=== PATIENT | female | born 2000 | race American Indian/Alaskan Native ===

== ENCOUNTER 2019-05-21 17:42 | Inpatient (IN) | payer MEDICAID ==
[2019-05-21] MEDS ORDERED: hydrOXYzine HCl 25 MG Tab PO ONE (20:33)
[2019-05-21] MEDS ORDERED: fentaNYL 100 MCG/2 ML SDV IVPUSH ONE (22:28)
[2019-05-21] MEDS: Lactated Ringers 1,000 ML IV SCH ×2 (22:31→23:58)
[2019-05-21] MEDS ORDERED: fentaNYL 100 MCG/2 ML SDV IVPUSH PRN (22:47)
[2019-05-21] MEDS ORDERED: Lactated Ringers 1,000 ML IV ONE (22:47)
[2019-05-21] MEDS ORDERED: Sodium Chloride 0.9% 10 ML Syringe FLUSH PRN (22:47)
[2019-05-21] MEDS ORDERED: Lidocaine 1% 30 ML SDV INJECT PRN (22:47)
[2019-05-21] MEDS ORDERED: Butorphanol 2 MG/ML SDV IVPUSH PRN ×2 (22:47)
[2019-05-21] MEDS ORDERED: Methylergonovine 0.2 MG/1 ML Amp IM PRN (22:47)
[2019-05-21] MEDS ORDERED: Ondansetron 4 MG/2 ML SDV IVPUSH PRN (22:47)
[2019-05-21] MEDS ORDERED: Tranexamic Acid 1,000 MG in Sodium Chloride 0.9% 100 ML IV PRN (22:47)
[2019-05-21] MEDS ORDERED: Carboprost Tromethamine 250 MCG/1 ML Amp IM PRN (22:47)
[2019-05-21] MEDS ORDERED: Misoprostol 400 MCG (4 X 100 MCG TAB) RECTAL PRN (22:47)
--- NOTE | 2019-05-21 22:47 | PCM.LDHP ---
L&D History of Present Illness - General Date of Service: 05/21/19 Admit Problem/Dx: Admission Diagnosis/Problem Admission Diagnosis/Problem Source of Information: Patient History Limitations: Reports: No Limitations - History of Present Illness Introduction:: 18-year-old at 40w0d presents to L&D with increased contractions. Patient has been vahid since this morning. She was seen in the clinic and was 1 cm dilated with a very posterior cervix this morning. Contractions increased so she presented to L&D around 1730. Cervix was again noted to be 1cm and posterior. Contractions were 2-3 minutes apart and painful. Patient was monitored for 2 hours. Cervix was noted to be 1 cm but moved anterior and was 90% effaced. Baby has been active. No vaginal bleeding or leaking of fluid. has been complicated by THC use and constipation. 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: Reports: , Spontaneous Social & Family History - Family History Family Medical History: Noncontributory - Tobacco Use Smoking Status *Q: Never Smoker Second Hand Smoke Exposure: No - Caffeine Use Caffeine Use: Reports: Soda - Recreational Drug Use Recreational Drug Use: No H&P Review of Systems - Review of Systems: Review Of Systems: See Below General: Reports: No Symptoms HEENT: Reports: No Symptoms Pulmonary: Reports: No Symptoms Cardiovascular: Reports: No Symptoms Genitourinary: Reports: No Symptoms Musculoskeletal: Reports: Back Pain Skin: Reports: No Symptoms L&D Exam - Exam Exam: See Below - Vital Signs Vital Signs: Last Vital Signs Temp 36.5 C 05/21/19 20:00 Pulse 72 05/21/19 20:00 Resp 16 05/21/19 20:00 BP 123/74 05/21/19 20:00 Pulse Ox Weight: 75.296 kg - OB Specific Contraction Duration (sec): 90 Contraction Frequency (min): 2.5 Contraction Intensity: Mild to Moderate Movement: Active Heart Tones: Present Heart Tones per Min: 140 Heart Rate (FHR) Variability: Marked (>25 bpm) Presentation: Vertex - Calhoun Score Calhoun Score Cervix Position: Anterior Calhoun Score Consistency: Soft Calhoun Score Effacement: >80% Calhoun Score Dilation: 1-2 cm Calhoun Score 's Station: -2 Calhoun Score Total: 9 - Exam General: Alert, Oriented HEENT: Mucosa Moist & [place], Posterior Pharynx Clear Lungs: Clear to Auscultation, Normal Respiratory Effort Cardiovascular: Regular Rate, Regular Rhythm. No: Systolic Murmur, Diastolic Murmur Genitourinary: Normal external exam Back Exam: Normal Inspection Skin: Warm, Dry, Intact - Patient Data Lab Results Last 24 hrs: Laboratory Results - last 24 hr 05/21/19 05/21/19 Range/Units 20:48 21:24 WBC 8.6 (5.0-10.0) 10^3/uL RBC 4.21 (4.2-5.4) 10^6/uL Hgb 11.4 L (12.0-16.0) g/dL Hct 33.8 L (37.0-47.0) % MCV 80.3 (80-100) fL MCH 27.1 (27.0-34.0) pg MCHC 33.7 (33.0-35.0) g/dL Plt Count 210 (150-450) 10^3/uL Urine Opiates Screen Negative (NEGATIVE) Ur Oxycodone Screen Negative (NEGATIVE) Urine Methadone Screen Negative (NEGATIVE) Ur Barbiturates Screen Negative (NEGATIVE) U Tricyclic Antidepress Negative (NEGATIVE) Ur Phencyclidine Scrn Negative (NEGATIVE) Ur Amphetamine Screen Negative (NEGATIVE) U Methamphetamines Scrn Negative (NEGATIVE) Urine MDMA Screen Negative (NEGATIVE) U Benzodiazepines Scrn Negative (NEGATIVE) Urine Cocaine Screen Negative (NEGATIVE) U Marijuana (THC) Screen Negative (NEGATIVE) Result Diagrams: 05/21/19 20:48 - Problem List (1) care SNOMED Code(s): 803426830, 59198467, 407171497, 231772437 ICD Code: Z34.90 - ENCNTR FOR SUPRVSN OF NORMAL , UNSP, UNSP TRIMESTER Status: Acute (2) Active labor at term SNOMED Code(s): 86519788 ICD Code: ZRY7262 - Status: Acute (3) Drug use affecting SNOMED Code(s): 75366203, 077362588 ICD Code: O99.320 - DRUG USE COMPLICATING , UNSPECIFIED TRIMESTER Status: Acute Problem List Initiated/Reviewed/Updated: Yes Orders Last 24hrs: Active Orders 24 hr Category Date Time Status OB Check [OM.PC] Click To Edit Care 05/21/19 18:02 Ordered Lactated Ringers [Ringers, Lactated] 1,000 ml Med 05/21/19 20:45 Active IV ASDIRECTED EFM External [ Heart Monitor External] [WOMSER] Oth 05/21/19 20:34 Ordered Routine Medication Orders Lactated Ringer's (Ringers, Lactated) 1,000 mls @ 125 mls/hr IV ASDIRECTED SHERMAN Last Admin: 05/21/19 22:31 Dose: 125 mls/hr Assessment/Plan Comment:: 18-year-old at 40w0d in active labor 1. Admit to L&D and initiate routine intrapartum orders 2. AROM when able 3. Patient desires intrathecal when appropriate 4. Expectant management. Anticipate Sherry Villegas MD
[2019-05-21] MEDS ORDERED: Oxytocin/Normal Saline 30 UNIT/500 ML BAG IV SCH (23:00)
[2019-05-22] MEDS ORDERED: fentaNYL 100 MCG/2 ML SDV ONE (00:02)
[2019-05-22] MEDS ORDERED: EPINEPHrine 1 MG/1 ML Amp ONE ×2 (00:02→11:24)
[2019-05-22] MEDS: Lactated Ringers 1,000 ML IV SCH (00:19)
--- NOTE | 2019-05-22 00:36 | PCM.PRNOTE ---
- Free Text/Narrative Note: Requested to provide analgesia to full term patient in severe pain. Upon entering the room, patient is sitting on edge of bed complaining of severe abdominal/pelvic pain and discomfort. Procedure was discussed with patient including adverse outcomes and expectations. Pt consented to analgesia, SAB/ IT. Pt placed into a proper sitting position. Landmarks for SAB/IT were identified and marked. Hands were washed and appropriate PPE was applied. Back was prepped with betadine x3. A sterile, transparent, fenestrated drape was applied. Excess betadine was removed. Using 3 mL of a 1% lidocaine solution , a skin wheel was placed at the L2/L3 interspace. A 24 ga (4 inch) Pencan spinal needle was inserted until positive for CSF. Negative for heme or paresthesias. Injected fentanyl 30 mcg, sufentanil 25 mcg, and 7.5 mg of a 0.75 % bupivacaine solution with an epi wash. Pt was placed left lateral position for approximately 20 minutes. There were zero complications or adverse outcomes. Will continue to monitor. Procedure Date & Time: 05/22/19 [id number]
--- NOTE | 2019-05-22 03:21 | PCM.DEL ---
L & D Note - General Info Date of Service: 05/22/19 Mother's Due Date: 05/21/19 - Delivery Note Labor: Spontaneous, Augmented by ARM Delivery Outcome: Livebirth Delivery Method: Spontaneous Vaginal Delivery-Single Infant Delivery Mode: Spontaneous Presentation: Vertex Nuchal Cord: None Anesthesia Type: Intrathecal Amniotic Fluid Description: Clear Episiotomy Type: None Laceration: 1st Degree, Perineal Suture type: Vicryl Suture size: 3-0 Placenta: Intact, Spontaneous Cord: 3 Vessels Estimated Blood Loss: 225 Resuscitation Needed: No : Bulb Syringe, Stimulated, Warmed Provider: Sherry Villegas Score 1 min: 8 Score 5 min: 9 Delivery Comments (Free Text/Narrative):: 18-year-old presented to L&D around 1730 for increased contractions. After 2 hours of observation, she was noted to be in active labor. Patient progressed through labor. She received an intrathecal around 0015. AROM was performed around 0030 for moderate clear fluid. Patient was noted to be completely dilated around 0245. She pushed for approximately 20 minutes then delivered a viable male with Apgars of 8 and 9 at 1 and 5 minutes respectively. was placed on the patient's abdomen. Cord was clamped x 2 then cut by patient's significant other. Cord blood was collected. Placenta delivered spontaneously 3 minutes later and was noted to be intact. Uterine tone and bleeding were noted to be appropriate. A 1st degree perineal laceration was noted and was bleeding so was repaired with a single figure-of-8 suture. Bleeding was again noted to be appropriate. Patient tolerated the procedure well, and there were no immediate complications. - General Info Date of Service: 05/22/19 - Patient Data Vitals - Most Recent: Last Vital Signs Temp 36.5 C 05/21/19 23:30 Pulse 96 05/22/19 00:00 Resp 16 05/22/19 00:00 BP 114/65 05/22/19 00:00 Pulse Ox Weight - Most Recent: 75.296 kg Lab Results Last 24 Hours: Laboratory Results - last 24 hr 05/21/19 05/21/19 Range/Units 20:48 21:24 WBC 8.6 (5.0-10.0) 10^3/uL RBC 4.21 (4.2-5.4) 10^6/uL Hgb 11.4 L (12.0-16.0) g/dL Hct 33.8 L (37.0-47.0) % MCV 80.3 (80-100) fL MCH 27.1 (27.0-34.0) pg MCHC 33.7 (33.0-35.0) g/dL Plt Count 210 (150-450) 10^3/uL Urine Opiates Screen Negative (NEGATIVE) Ur Oxycodone Screen Negative (NEGATIVE) Urine Methadone Screen Negative (NEGATIVE) Ur Barbiturates Screen Negative (NEGATIVE) U Tricyclic Antidepress Negative (NEGATIVE) Ur Phencyclidine Scrn Negative (NEGATIVE) Ur Amphetamine Screen Negative (NEGATIVE) U Methamphetamines Scrn Negative (NEGATIVE) Urine MDMA Screen Negative (NEGATIVE) U Benzodiazepines Scrn Negative (NEGATIVE) Urine Cocaine Screen Negative (NEGATIVE) U Marijuana (THC) Screen Negative (NEGATIVE) Med Orders - Current: Current Medications Acetaminophen (Tylenol) 650 mg PO Q4H PRN PRN Reason: Pain (Mild 1-3) and fever Butorphanol Tartrate (Stadol) 0.5 mg IVPUSH Q3H PRN PRN Reason: Pain Butorphanol Tartrate (Stadol) 1 mg IVPUSH Q3H PRN PRN Reason: Pain Carboprost Tromethamine (Hemabate Ds) 250 mcg IM ASDIRECTED PRN PRN Reason: HEMORRHAGE Fentanyl (Sublimaze) 100 mcg IVPUSH Q1H PRN PRN Reason: Pain (moderate 4-6) Lactated Ringer's (Ringers, Lactated) 1,000 mls @ 125 mls/hr IV ASDIRECTED [facility] Last Admin: 05/22/19 00:19 Dose: 125 mls/hr Oxytocin/Sodium Chloride (Pitocin In Ns 30 Unit/500 Ml) 30 unit in 500 mls @ 2 mls/hr IV TITRATE SHERMAN; Protocol Tranexamic Acid 1,000 mg/ (Sodium Chloride) 110 mls @ 660 mls/hr IV ONETIME PRN PRN Reason: Bleeding Lidocaine HCl (Xylocaine-Mpf 1%) 30 ml INJECT ASDIRECTED PRN PRN Reason: Perineal Repair Methylergonovine Maleate (Methergine) 0.2 mg IM ASDIRECTED PRN PRN Reason: Hemorrhage Misoprostol (Cytotec) 800 mcg RECTAL ASDIRECTED PRN PRN Reason: Hemorrhage Ondansetron HCl (Zofran) 4 mg IVPUSH Q4H PRN PRN Reason: Nausea/Vomiting Last Admin: 05/21/19 23:49 Dose: 4 mg Sodium Chloride (Saline Flush) 10 ml FLUSH ASDIRECTED PRN PRN Reason: Keep Vein Open Discontinued Medications Epinephrine HCl (Adrenalin) Confirm Administered Dose 1 mg .ROUTE .STK-MED ONE Stop: 05/22/19 00:03 Last Admin: 05/22/19 01:40 Dose: Not Given Fentanyl (Sublimaze) 100 mcg IVPUSH ONETIME ONE Stop: 05/21/19 22:29 Last Admin: 05/21/19 22:52 Dose: 100 mcg Fentanyl (Sublimaze) Confirm Administered Dose 100 mcg .ROUTE .STK-MED ONE Stop: 05/22/19 00:03 Last Admin: 05/22/19 01:40 Dose: Not Given Hydroxyzine HCl (Atarax) 50 mg PO ONETIME ONE Stop: 05/21/19 20:34 Last Admin: 05/21/19 21:08 Dose: 50 mg Lactated Ringer's (Ringers, Lactated) 1,000 mls @ 999 mls/hr IV BOLUS ONE Stop: 05/21/19 23:47 Sufentanil Citrate (Sufenta) Confirm Administered Dose 50 mcg .ROUTE .STK-MED ONE Stop: 05/22/19 00:03 Last Admin: 05/22/19 01:41 Dose: Not Given - Problem List & Annotations (1) (normal spontaneous vaginal delivery) SNOMED Code(s): 49831939, 159243736 Code(s): O80 - ENCOUNTER FOR FULL-TERM UNCOMPLICATED DELIVERY Status: Acute (2) Perineal laceration SNOMED Code(s): 872178133 Code(s): DWS9307 - Status: Acute - Problem List Review Problem List Initiated/Reviewed/Updated: Yes - My Orders Last 24 Hours: My Active Orders 05/21/19 18:02 OB Check [OM.PC] Click To Edit 05/21/19 20:34 EFM External [ Heart Monitor External] [WOMSER] Routine 05/21/19 20:45 Lactated Ringers [Ringers, Lactated] 1,000 ml IV ASDIRECTED 05/21/19 22:47 Patient Status [ADT] Routine Communication Order [RC] ASDIRECTED Heart Tones [RC] PER UNIT ROUTINE Notify Provider Vital Signs OB [RC] ASDIRECTED Notify Provider [RC] PRN Pump Management, Intrathecal [RC] ASDIRECTED Up ad Rylee [RC] ASDIRECTED Vital Signs [RC] PER UNIT ROUTINE Acetaminophen [Tylenol] 650 mg PO Q4H PRN Butorphanol [Stadol] 0.5 mg IVPUSH Q3H PRN Butorphanol [Stadol] 1 mg IVPUSH Q3H PRN Carboprost Tromethamine [Hemabate DS] 250 mcg IM ASDIRECTED PRN Lidocaine 1% [Xylocaine-MPF 1%] 30 ml INJECT ASDIRECTED PRN Methylergonovine [Methergine] 0.2 mg IM ASDIRECTED PRN Ondansetron [Zofran] 4 mg IVPUSH Q4H PRN Sodium Chloride 0.9% [Saline Flush] 10 ml FLUSH ASDIRECTED PRN Tranexamic Acid [Cyklokapron] 1,000 mg Sodium Chloride 0.9% [Normal Saline] 100 ml IV ONETIME fentaNYL [Sublimaze] 100 mcg IVPUSH Q1H PRN miSOPROStoL [Cytotec] 800 mcg RECTAL ASDIRECTED PRN Saline Lock Insert [OM.PC] Routine Resuscitation Status Routine 05/21/19 23:00 Oxytocin/Normal Saline [Pitocin in NS 30 UNIT/500 ML] 30 unit in 500 ml IV TITRATE 05/22/19 Breakfast Clear Liquid Diet [DIET] - Assessment Assessment:: 18-year-old, now , s/p at 40w1d - Plan Plan:: 1. Initiate routine cares 2. Plans to breastfeed 3. Anticipate discharge 05/24/2019 Sherry Villegas MD
[2019-05-22] MEDS ORDERED: Oxytocin 10 Units/1 ML SDV IM PRN (03:22)
[2019-05-22] MEDS ORDERED: Benzocaine/Menthol 20%-0.5% Spray 56 GM Canister TOP PRN (03:22)
[2019-05-22] MEDS ORDERED: Simethicone 80 MG Tab.Chew PO PRN (03:22)
[2019-05-22] MEDS: Ibuprofen 800 MG Tab PO PRN ×3 (04:58→22:04)
[2019-05-22] MEDS: Prenatal Multivitamin with Calcium/Folic Acid/Iron Tab PO SCH (09:22)
[2019-05-22] MEDS: Docusate Sodium 100 MG Cap PO PRN ×2 (09:26→21:06)
[2019-05-22] MEDS ORDERED: Bupivacaine 0.75%/D5W 2 ML Amp ISPINAL ONE (11:24)
[2019-05-22] MEDS ORDERED: fentaNYL 100 MCG/2 ML SDV ITHECAL ONE (11:24)
[2019-05-22] MEDS ORDERED: Lidocaine 1% 30 ML SDV ONE (11:24)
[2019-05-22] MEDS: Acetaminophen 325 MG Tab PO PRN ×2 (14:45→21:06)
[2019-05-23] MEDS: Acetaminophen 325 MG Tab PO PRN (02:06)
[2019-05-23] MEDS: Ibuprofen 800 MG Tab PO PRN ×2 (09:22→19:06)
[2019-05-23] MEDS: Prenatal Multivitamin with Calcium/Folic Acid/Iron Tab PO SCH (09:22)
[2019-05-23] MEDS: Docusate Sodium 100 MG Cap PO PRN ×2 (09:25→19:06)
[2019-05-24] MEDS: Ibuprofen 800 MG Tab PO PRN (05:56)
[2019-05-24] MEDS: Docusate Sodium 100 MG Cap PO PRN (08:51)
[2019-05-24] MEDS: Prenatal Multivitamin with Calcium/Folic Acid/Iron Tab PO SCH (08:51)
[2019-05-24] MEDS: Acetaminophen 325 MG Tab PO PRN (08:51)
--- NOTE | 2019-05-24 09:50 | PCM.DCSUM1 ---
Discharge Summary - Hospital Course Free Text/Narrative:: 18-year-old PPD#2 status post at 40w1d Diagnosis: Stroke: No - Discharge Data Discharge Date: 05/24/19 Discharge Disposition: Home, Self-Care 01 Condition: Good - Referral to Home Health Primary Care Physician: Reggie Villegas MD - Patient Summary/Data Operative Procedure(s) Performed: None Complications: None Consults: Consultations 05/22/19 03:22 Consult to Director Of Learning [CONS] Routine Labs Pending at D/C: None Recommended Follow-up Testing/Procedures: None Planned Operative Procedure(s) after DC: None Hospital Course: Please see subjective section - Patient Instructions Diet: Usual Diet as Tolerated Activity: As Tolerated, No Lifting Over 20 Pounds Driving: May Drive Today Showering/Bathing: May Shower Notify Provider of: Fever, Increased Pain, Nausea and/or Vomiting - Discharge Plan *PRESCRIPTION DRUG MONITORING PROGRAM REVIEWED*: Not Applicable *COPY OF PRESCRIPTION DRUG MONITORING REPORT IN PATIENT LAURA: Not Applicable Home Medications: Home Meds Vits #93/Iron Fum/FA [ Formula Tablet] 1 tab PO DAILY 05/21/19 [History] Acetaminophen [Tylenol] 650 mg PO Q4H PRN tablet 05/24/19 [Rx] Docusate Sodium [Colace] 100 mg PO BID PRN cap 05/24/19 [Rx] Ibuprofen [Motrin] 800 mg PO Q8H PRN tablet 05/24/19 [Rx] witch Liane [Medi-Pads] 1 each TOP Q4HR PRN pad 05/24/19 [Rx] Patient Handouts: Care of a Perineal Tear, Care After Vaginal Delivery Referrals: Sherry Villegas MD [Primary Care Provider] - - Discharge Summary/Plan Comment DC Time >30 min.: No Discharge Summary/Plan Comment: Discharge home today. Follow-up in 6-8 weeks for routine visit. Reasons to return for evaluation prior to routine appointment were reviewed, and all questions were answered. - General Info Date of Service: 05/24/19 Subjective Update: PPD#2. Patient is doing well. Complains of back pain that improves with Tylenol and ibuprofen. Abdominal cramping has improved. No fever, chills, dizziness or lightheadedness. Tolerating a general diet. Urinating and passing gas. Ambulating without difficulty. is going well--baby did receive a bottle overnight. No concerns per nursing staff. Functional Status: Reports: Pain Controlled, Tolerating Diet, Ambulating, Urinating - Review of Systems General: Reports: No Symptoms HEENT: Reports: No Symptoms Pulmonary: Reports: No Symptoms Cardiovascular: Reports: No Symptoms Gastrointestinal: Reports: No Symptoms Genitourinary: Reports: No Symptoms Musculoskeletal: Reports: Back Pain Skin: Reports: No Symptoms Neurological: Reports: No Symptoms - Patient Data Vitals - Most Recent: Last Vital Signs Temp 36.7 C 05/24/19 08:00 Pulse 101 H 05/24/19 08:00 Resp 16 05/24/19 08:00 BP 98/55 L 05/24/19 08:00 Pulse Ox 98 05/24/19 08:00 Weight - Most Recent: 75.296 kg Med Orders - Current: Current Medications Acetaminophen (Tylenol) 650 mg PO Q4H PRN PRN Reason: Pain (Mild 1-3) and fever Last Admin: 05/24/19 08:51 Dose: 650 mg Benzocaine/Menthol (Dermoplast Pain Relief [place]) 0 gm TOP Q4H PRN PRN Reason: Perineal comfort measures Last Admin: 05/22/19 04:58 Dose: 1 spray Carboprost Tromethamine (Hemabate Ds) 250 mcg IM ASDIRECTED PRN PRN Reason: HEMORRHAGE Docusate Sodium (Colace) 100 mg PO BID PRN PRN Reason: Constipation Last Admin: 05/24/19 08:51 Dose: 100 mg Lactated Ringer's (Ringers, Lactated) 1,000 mls @ 125 mls/hr IV ASDIRECTED [facility]ERMAN Last Admin: 05/22/19 00:19 Dose: 125 mls/hr Oxytocin/Sodium Chloride (Pitocin In Ns 30 Unit/500 Ml) 30 unit in 500 mls @ 2 mls/hr IV TITRATE SHERMAN; Protocol Last Titration: 05/22/19 06:02 Dose: 0 mls/hr Tranexamic Acid 1,000 mg/ (Sodium Chloride) 110 mls @ 660 mls/hr IV ONETIME PRN PRN Reason: Bleeding Ibuprofen (Motrin) 800 mg PO Q8H PRN PRN Reason: Mild Pain or Fever Last Admin: 05/24/19 05:56 Dose: 800 mg Methylergonovine Maleate (Methergine) 0.2 mg IM ASDIRECTED PRN PRN Reason: Hemorrhage Misoprostol (Cytotec) 800 mcg RECTAL ASDIRECTED PRN PRN Reason: Hemorrhage Ondansetron HCl (Zofran) 4 mg IVPUSH Q4H PRN PRN Reason: Nausea/Vomiting Last Admin: 05/21/19 23:49 Dose: 4 mg Oxytocin (Pitocin) 10 unit IM ONETIME PRN PRN Reason: Bleeding Prenat Multivit/Ops Analyst/Iron/Folic Ac ( Plus Iron) 1 each PO DAILY [facility]MAN Last Admin: 05/24/19 08:51 Dose: 1 each Simethicone (Simethicone) 80 mg PO Q4H PRN PRN Reason: Gas Sodium Chloride (Saline Flush) 10 ml FLUSH ASDIRECTED PRN PRN Reason: Keep Vein Open Harpreet Moreau (Medi-Pads) 1 each TOP Q4HR PRN PRN Reason: Perineal Comfort Measure Last Admin: 05/22/19 13:50 Dose: 1 pad Discontinued Medications Butorphanol Tartrate (Stadol) 0.5 mg IVPUSH Q3H PRN PRN Reason: Pain Butorphanol Tartrate (Stadol) 1 mg IVPUSH Q3H PRN PRN Reason: Pain Epinephrine HCl (Adrenalin) Confirm Administered Dose 1 mg .ROUTE .STK-MED ONE Stop: 05/22/19 00:03 Last Admin: 05/22/19 01:40 Dose: Not Given Fentanyl (Sublimaze) 100 mcg IVPUSH ONETIME ONE Stop: 05/21/19 22:29 Last Admin: 05/21/19 22:52 Dose: 100 mcg Fentanyl (Sublimaze) 100 mcg IVPUSH Q1H PRN PRN Reason: Pain (moderate 4-6) Fentanyl (Sublimaze) Confirm Administered Dose 100 mcg .ROUTE .STK-MED ONE Stop: 05/22/19 00:03 Last Admin: 05/22/19 01:40 Dose: Not Given Hydroxyzine HCl (Atarax) 50 mg PO ONETIME ONE Stop: 05/21/19 20:34 Last Admin: 05/21/19 21:08 Dose: 50 mg Lactated Ringer's (Ringers, Lactated) 1,000 mls @ 999 mls/hr IV BOLUS ONE Stop: 05/21/19 23:47 Last Admin: 05/22/19 06:02 Dose: Not Given Lidocaine HCl (Xylocaine-Mpf 1%) 30 ml INJECT ASDIRECTED PRN PRN Reason: Perineal Repair Sufentanil Citrate (Sufenta) Confirm Administered Dose 50 mcg .ROUTE .STActiveSec-MED ONE Stop: 05/22/19 00:03 Last Admin: 05/22/19 01:41 Dose: Not Given - Exam General: Reports: Alert, Oriented Lungs: Reports: Clear to Auscultation, Normal Respiratory Effort Cardiovascular: Reports: Regular Rate, Regular Rhythm, No Murmurs GI/Abdominal Exam: Soft, Non-Tender Back Exam: Reports: Normal Inspection Extremities: Normal Inspection, No Pedal Edema Skin: Reports: Warm, Dry, Intact
--- NOTE | 2019-05-27 22:55 | PCM.PNPP ---
- General Info Date of Service: 05/23/19 Subjective Update: PPD#1. Patient is doing well. Complains of abdominal cramping and back pain that improves with Tylenol and ibuprofen. No fever, chills, dizziness or lightheadedness. Tolerating a general diet. Urinating and passing gas. Ambulating without difficulty. is going well. No concerns per nursing staff. - Review of Systems General: Reports: No Symptoms HEENT: Reports: No Symptoms Pulmonary: Reports: No Symptoms Cardiovascular: Reports: No Symptoms Gastrointestinal: Reports: Abdominal Pain Genitourinary: Reports: No Symptoms Musculoskeletal: Reports: Back Pain Skin: Reports: No Symptoms Neurological: Reports: No Symptoms - General Info Date of Service: 05/23/19 - Patient Data Vital Signs - Most Recent: Last Vital Signs Temp 36.7 C 05/24/19 08:00 Pulse 101 H 05/24/19 08:00 Resp 16 05/24/19 08:00 BP 98/55 L 05/24/19 08:00 Pulse Ox 98 05/24/19 08:00 Weight - Most Recent: 75.296 kg Med Orders - Current: Current Medications Discontinued Medications Acetaminophen (Tylenol) 650 mg PO Q4H PRN PRN Reason: Pain (Mild 1-3) and fever Last Admin: 05/24/19 08:51 Dose: 650 mg Benzocaine/Menthol (Dermoplast Pain Relief [place]) 0 gm TOP Q4H PRN PRN Reason: Perineal comfort measures Last Admin: 05/22/19 04:58 Dose: 1 spray Butorphanol Tartrate (Stadol) 0.5 mg IVPUSH Q3H PRN PRN Reason: Pain Butorphanol Tartrate (Stadol) 1 mg IVPUSH Q3H PRN PRN Reason: Pain Carboprost Tromethamine (Hemabate Ds) 250 mcg IM ASDIRECTED PRN PRN Reason: HEMORRHAGE Docusate Sodium (Colace) 100 mg PO BID PRN PRN Reason: Constipation Last Admin: 05/24/19 08:51 Dose: 100 mg Epinephrine HCl (Adrenalin) Confirm Administered Dose 1 mg .ROUTE .STK-MED ONE Stop: 05/22/19 00:03 Last Admin: 05/22/19 01:40 Dose: Not Given Fentanyl (Sublimaze) 100 mcg IVPUSH ONETIME ONE Stop: 05/21/19 22:29 Last Admin: 05/21/19 22:52 Dose: 100 mcg Fentanyl (Sublimaze) 100 mcg IVPUSH Q1H PRN PRN Reason: Pain (moderate 4-6) Fentanyl (Sublimaze) Confirm Administered Dose 100 mcg .ROUTE .STK-MED ONE Stop: 05/22/19 00:03 Last Admin: 05/22/19 01:40 Dose: Not Given Hydroxyzine HCl (Atarax) 50 mg PO ONETIME ONE Stop: 05/21/19 20:34 Last Admin: 05/21/19 21:08 Dose: 50 mg Lactated Ringer's (Ringers, Lactated) 1,000 mls @ 125 mls/hr IV ASDIRECTED [facility]ERMAN Last Admin: 05/22/19 00:19 Dose: 125 mls/hr Lactated Ringer's (Ringers, Lactated) 1,000 mls @ 999 mls/hr IV BOLUS ONE Stop: 05/21/19 23:47 Last Admin: 05/22/19 06:02 Dose: Not Given Oxytocin/Sodium Chloride (Pitocin In Ns 30 Unit/500 Ml) 30 unit in 500 mls @ 2 mls/hr IV TITRATE SHERMAN; Protocol Last Titration: 05/22/19 06:02 Dose: 0 mls/hr Tranexamic Acid 1,000 mg/ (Sodium Chloride) 110 mls @ 660 mls/hr IV ONETIME PRN PRN Reason: Bleeding Ibuprofen (Motrin) 800 mg PO Q8H PRN PRN Reason: Mild Pain or Fever Last Admin: 05/24/19 05:56 Dose: 800 mg Lidocaine HCl (Xylocaine-Mpf 1%) 30 ml INJECT ASDIRECTED PRN PRN Reason: Perineal Repair Methylergonovine Maleate (Methergine) 0.2 mg IM ASDIRECTED PRN PRN Reason: Hemorrhage Misoprostol (Cytotec) 800 mcg RECTAL ASDIRECTED PRN PRN Reason: Hemorrhage Ondansetron HCl (Zofran) 4 mg IVPUSH Q4H PRN PRN Reason: Nausea/Vomiting Last Admin: 05/21/19 23:49 Dose: 4 mg Oxytocin (Pitocin) 10 unit IM ONETIME PRN PRN Reason: Bleeding Prenat Multivit/General I Farmworker/Iron/Folic Ac ( Plus Iron) 1 each PO DAILY [facility] Last Admin: 05/24/19 08:51 Dose: 1 each Simethicone (Simethicone) 80 mg PO Q4H PRN PRN Reason: Gas Sodium Chloride (Saline Flush) 10 ml FLUSH ASDIRECTED PRN PRN Reason: Keep Vein Open Sufentanil Citrate (Sufenta) Confirm Administered Dose 50 mcg .ROUTE .STK-MED ONE Stop: 05/22/19 00:03 Last Admin: 05/22/19 01:41 Dose: Not Given Harpreet Lzizeth (Medi-Pads) 1 each TOP Q4HR PRN PRN Reason: Perineal Comfort Measure Last Admin: 05/22/19 13:50 Dose: 1 pad - Infant Interaction Disposition, : [place] in Room with Family Interaction: Holding Feeding: Breastfed Infant; Nursed Well Support Person: Sister - Recovery Exam Fundal Tone: Firm Fundal Level: At Umbilicus Fundal Placement: Midline Lochia Amount: Moderate Lochia Color: Rubra/Red Perineum Description: Intact, Minimal Bruising/Swelling Episiotomy/Laceration: Approximated Bladder Status: Voiding Urinary Elimination: Voided - Exam General: Alert, Oriented Lungs: Clear to Auscultation, Normal Respiratory Effort Cardiovascular: Regular Rate, Regular Rhythm, No Murmurs GI/Abdominal Exam: Soft Extremities: No Pedal Edema Skin: Warm, Dry, Intact - Problem List & Annotations (1) (normal spontaneous vaginal delivery) SNOMED Code(s): 55317557, 239083552 Code(s): O80 - ENCOUNTER FOR FULL-TERM UNCOMPLICATED DELIVERY Status: Acute (2) Perineal laceration SNOMED Code(s): 882271996 Code(s): DZC8331 - Status: Acute - Problem List Review Problem List Initiated/Reviewed/Updated: No - Assessment Assessment:: 18-year-old, now , PPD#1 s/p at 40w1d - Plan Plan:: 1. Continue routine cares 2. well 3. Anticipate discharge 05/24/2019 Sherry Villegas MD
== END 2019-05-24 11:25 | disposition home or self-care (01) | DRG 807 ==
LOC: DL.OBCHECK 17:42 → DL.OB 22:47 → OBSVTOIN 05-22 03:04
PROVIDERS: ADMIT Family Medicine; ATTEND Family Medicine
PROC: 10E0XZZ Delivery of Products of Conception, External Approach (ICD-10-PCS; principal; 2019-05-22)
PROC: 10907ZC Drainage of Amniotic Fluid, Therapeutic from Products of Conception, Via Natural or Artificial Opening (ICD-10-PCS; 2019-05-22)
PROC: 0HQ9XZZ Repair Perineum Skin, External Approach (ICD-10-PCS; 2019-05-22)
DX: O48.0 Post-term pregnancy (principal); Z37.0 Single live birth; Z3A.40 40 weeks gestation of pregnancy; O70.0 First degree perineal laceration during delivery
CPT/HCPCS: 36415; 51701; 59409; 80305-QW; 85027; A9270-GY; J0171; J2001; J2405; J2590; J3010; J7120

== ENCOUNTER 2020-07-30 00:26 | Inpatient (IN) | payer MEDICAID ==
[2020-07-30] MEDS ORDERED: Lidocaine 1% 30 ML SDV INJECT PRN (01:03)
[2020-07-30] MEDS ORDERED: Penicillin G Potassium 5 MILLUNITS in Sodium Chloride 0.9% 100 ML IV ONE (01:03)
[2020-07-30] MEDS ORDERED: Methylergonovine 0.2 MG/1 ML Amp IM PRN (01:03)
[2020-07-30] MEDS ORDERED: Ondansetron 4 MG/2 ML SDV IVPUSH PRN (01:03)
[2020-07-30] MEDS ORDERED: Acetaminophen 325 MG Tab PO PRN (01:03)
[2020-07-30] MEDS ORDERED: Misoprostol 400 MCG (4 X 100 MCG TAB) RECTAL PRN (01:03)
[2020-07-30] MEDS ORDERED: Tranexamic Acid 1,000 MG in Sodium Chloride 0.9% 100 ML IV PRN (01:03)
[2020-07-30] MEDS ORDERED: Sodium Chloride 0.9% 10 ML Syringe FLUSH PRN (01:03)
[2020-07-30] MEDS ORDERED: Carboprost Tromethamine 250 MCG/1 ML Amp IM PRN (01:03)
[2020-07-30] MEDS ORDERED: Sodium Bicarbonate 4.2% 2.5 MEQ/5 ML SDV ONE (01:05)
[2020-07-30] MEDS ORDERED: fentaNYL 100 MCG/2 ML SDV ITHECAL ONE (01:05)
[2020-07-30] MEDS ORDERED: EPINEPHrine 1 MG/1 ML Amp ONE (01:05)
[2020-07-30] MEDS ORDERED: Sodium Chloride 0.9% 20 ML SDV ONE (01:05)
[2020-07-30] MEDS ORDERED: Penicillin G Potassium 5,000,000 Unit Vial ONE (01:10)
--- NOTE | 2020-07-30 01:14 | PCM.LDHP ---
L&D History of Present Illness - General Date of Service: 07/30/20 Admit Problem/Dx: Patient Status Order with Admit Dx/Problem 07/30/20 01:04 Patient Status [ADT] Routine Admission Diagnosis/Problem Admission Diagnosis/Problem care in third trimester Source of Information: Patient History Limitations: Reports: No Limitations - History of Present Illness Introduction:: 19-year-old at 40w1d presented to L&D in active labor. Contractions started a few hours ago and have picked up over the past hour or so. Baby has been active. No vaginal bleeding or leaking of fluid. Has had mucus discharge. has bee complicated by late/limited care and THC use. GBS status is unknown. 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: , 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 Social & Family History - Family History Family Medical History: No Pertinent Family History - Caffeine Use Caffeine Use: Reports: Soda H&P Review of Systems - Review of Systems: Review Of Systems: See Below General: Reports: No Symptoms HEENT: Reports: No Symptoms Pulmonary: Reports: No Symptoms Cardiovascular: Reports: No Symptoms Musculoskeletal: Reports: Back Pain Skin: Reports: No Symptoms L&D Exam - Exam Exam: See Below - OB Specific Contraction Intensity: Moderate to Strong Movement: Active Heart Tones: Present Heart Tones per Min: 140 Heart Rate (FHR) Variability: Moderate (6-25 bmp) Presentation: Vertex - Calhoun Score Calhoun Score Cervix Position: Anterior Clahoun Score Consistency: Soft Calhoun Score Effacement: >80% Calhoun Score Dilation: > 5 cm Calhoun Score 's Station: -1 ,0 Calhoun Score Total: 12 - Exam General: Alert, Oriented, Mild Distress HEENT: Conjunctiva Clear, Pupils Equal Lungs: Clear to Auscultation, Normal Respiratory Effort Cardiovascular: Regular Rate, Regular Rhythm Back Exam: Normal Inspection, Full Range of Motion Extremities: Normal Inspection, Normal Range of Motion, Non-Tender, No Pedal Edema, Normal Capillary Refill Skin: Warm, Dry, Intact Psychiatric: Alert - Problem List (1) care in third trimester SNOMED Code(s): 884246633, 10061445, 25119466, 421229718, 290603977 ICD Code: Z34.93 - ENCNTR FOR SUPRVSN OF NORMAL PREG, UNSP, THIRD TRIMESTER Status: Acute Current Visit: Yes (2) Limited care in third trimester SNOMED Code(s): 106119178, 724065119 ICD Code: O09.33 - SUPRVSN OF PREG W INSUFFICIENT ANTENAT CARE, THIRD TR IMESTER Status: Acute Current Visit: Yes (3) Active labor at term SNOMED Code(s): 76726051 ICD Code: AAD7022 - Status: Acute Current Visit: No (4) Drug use affecting SNOMED Code(s): 04399846, 944050163 ICD Code: O99.320 - DRUG USE COMPLICATING , UNSPECIFIED TRIMESTER Status: Acute Current Visit: No Problem Details: THC+ UDS Problem List Initiated/Reviewed/Updated: Yes Orders Last 24hrs: Active Orders 24 hr Category Date Time Status Patient Status [ADT] Routine ADT 07/30/20 01:04 Ordered Communication Order [RC] ASDIRECTED Care 07/30/20 01:04 Ordered Heart Tones [RC] PER UNIT ROUTINE Care 07/30/20 01:04 Ordered Notify Provider Vital Signs OB [RC] ASDIRECTED Care 07/30/20 01:04 Ordered Notify Provider [RC] PRN Care 07/30/20 01:04 Ordered Pump Management, Intrathecal [RC] ASDIRECTED Care 07/30/20 01:03 Ordered Up ad Rylee [RC] ASDIRECTED Care 07/30/20 01:04 Ordered Vital Signs [RC] PER UNIT ROUTINE Care 07/30/20 01:04 Ordered CBC W/O DIFF,HEMOGRAM [HEME] Routine Lab 07/30/20 01:04 Ordered CORONAVIRUS COVID-19 LEO [MOLEC] Stat Lab 07/30/20 01:04 Ordered DRUG SCREEN URINE BIORAD [URCHEM] Routine Lab 07/30/20 01:03 Ordered Acetaminophen [TylenoL] Med 07/30/20 01:03 Ordered 650 mg PO Q4H PRN Carboprost Tromethamine [Hemabate DS] Med 07/30/20 01:03 Ordered 250 mcg IM ASDIRECTED PRN Lactated Ringers @ 125 MLS/HR(1000ml) Med 07/30/20 01:15 Ordered Lactated Ringers [Ringers, Lactated] 1,000 ml IV ASDIRECTED Lactated Ringers [Ringers, Lactated] 1,000 ml Med 07/30/20 01:03 Ordered IV BOLUS Lidocaine 1% [Xylocaine-MPF 1%] Med 07/30/20 01:03 Ordered 30 ml INJECT ASDIRECTED PRN Methylergonovine [Methergine] Med 07/30/20 01:03 Ordered 0.2 mg IM ASDIRECTED PRN Ondansetron [Zofran] Med 07/30/20 01:03 Ordered 4 mg IVPUSH Q4H PRN Oxytocin 30 Units in NS @ 2 MUNITS/MIN(500ml) Med 07/30/20 01:15 Ordered Oxytocin/Normal Saline [Pitocin in NS 30 UNIT/500 ML] 30 unit in 500 ml IV TITRATE Penicillin G Potassium [Pfizerpen] 3 millunits Med 07/30/20 02:00 Ordered Sodium Chloride 0.9% [Normal Saline] 100 ml IV Q4HR Penicillin G Potassium [Pfizerpen] 5 millunits Med 07/30/20 01:03 Ordered Sodium Chloride 0.9% [Normal Saline] 100 ml IV ONETIME Sodium Chloride 0.9% [Saline Flush] Med 07/30/20 01:03 Ordered 10 ml FLUSH ASDIRECTED PRN Tranexamic Acid [Cyklokapron] 1,000 mg Med 07/30/20 01:03 Ordered Sodium Chloride 0.9% [Normal Saline] 100 ml IV ONETIME miSOPROStoL [Cytotec] Med 07/30/20 01:03 Ordered 800 mcg RECTAL ASDIRECTED PRN Saline Lock Insert [OM.PC] Routine Oth 07/30/20 01:04 Ordered Resuscitation Status Routine Resus Stat 07/30/20 01:03 Ordered Assessment/Plan Comment:: 19-year-old at 40w1d presenting to L&D in active labor 1. Initiate routine intrapartum cares 2. PCN for GBS unknown status 3. Patient desired intrathecal. 4. AROM when able--will plan to perform after intrathecal and 1st dose of PCN. Due to advanced cervical dilation, do not anticipate adequate treatment for GBS unknown status. 5. Expectant management. Anticipate . Dr. Sherry Villegas MD
[2020-07-30] MEDS: Lactated Ringers 1,000 ML IV SCH ×4 (01:15→22:21)
--- NOTE | 2020-07-30 01:27 | PCM.SN.2 ---
- Free Text/Narrative Note: Intrathecal. Sitting position, sterile prep and drape. 1% lidocaine w bicarb for skinwheal to L2 L3 interspace. Introducer, 24 ga pencan x 1. Pos CSF, neg heme, neg parasthesia at L2 L3 interspace. 0.1 ml pf 1:1000 epi, 20 mcg pf sufenta, 30 mcg pf fentanyl, 0.4 ml pf NS and 6 mg of 0.75% pf marcaine injected after CSF aspiration. Pt to L lateral position. Procedure time 0105 to 0135
[2020-07-30] MEDS ORDERED: Penicillin G Potassium 3 MILLUNITS in Sodium Chloride 0.9% 100 ML IV SCH (02:00)
[2020-07-30] MEDS: Oxytocin/Normal Saline 30 UNIT/500 ML BAG IV SCH ×2 (03:38→14:07)
--- NOTE | 2020-07-30 03:52 | PCM.DEL ---
L & D Note - General Info Date of Service: 07/30/20 Mother's Due Date: 07/29/20 - Delivery Note Labor: Spontaneous, Augmented by ARM Delivery Outcome: Livebirth Delivery Method: Spontaneous Vaginal Delivery-Single Presentation: Vertex Nuchal Cord: None Anesthesia Type: Intrathecal Amniotic Fluid Description: Clear Episiotomy Type: None Laceration: 1st Degree, Perineal Placenta: Intact, Spontaneous Cord: 3 Vessels Estimated Blood Loss: 250 Resuscitation Needed: No : Bulb Syringe, Stimulated, Warmed, [place] Used Provider: Sherry Villegas Score 1 min: 8 Score 5 min: 9 Delivery Comments (Free Text/Narrative):: Patient presented to L&D in active labor after vahid at home for about 3 hours. She was noted to be 6 cm dilated. Intrathecal was placed for pain control after negative COVID test was obtained. Patient then underwent AROM for moderate amount of clear fluid. She progressed to complete dilation around 0305. Patient began pushing. After about 15 minutes, a viable male infant was delivered with Apgars of 8 and 9 at 1 and 5 minutes respectively. Baby was placed on mother's chest. Cord was clamped x2 and cut (by patient's boyfriend). Cord blood was collected. Placenta delivered spontaneously about 7 minutes later with gentle cord traction and uterine massage. It was noted to be intact with a 3 vessel cord. Initially brisk vaginal bleeding was noted; however, this did improve with uterine massage and pitocin. A small 1st degree perineal laceration was noted but was hemostatic so no repair was performed. Bleeding was again assessed and noted to be appropriate. Uterus palpated firm. Patient tolerated the procedure well, and there were no immediate complications. - General Info Date of Service: 07/30/20 - Patient Data Vitals - Most Recent: Last Vital Signs Temp 35.5 C L 07/30/20 00:39 Pulse 69 07/30/20 02:45 Resp 18 07/30/20 02:45 BP 109/54 L 07/30/20 02:45 Pulse Ox 98 07/30/20 02:15 Weight - Most Recent: 73.482 kg I&O - Last 24 Hours: Intake & Output 07/29/20 07/29/20 07/30/20 14:59 22:59 06:59 Intake Total 1100 Balance 1100 Lab Results Last 24 Hours: Laboratory Results - last 24 hr 07/30/20 07/30/20 07/30/20 Range/Units 00:45 01:03 01:04 WBC 7.6 (5.0-10.0) 10^3/uL RBC 4.36 (4.2-5.4) 10^6/uL Hgb 10.1 L (12.0-16.0) g/dL Hct 31.6 L (37.0-47.0) % MCV 72.5 L D (80-100) fL MCH 23.2 L (27.0-34.0) pg MCHC 32.0 L (33.0-35.0) g/dL Plt Count 328 D (150-450) 10^3/uL Urine Opiates Screen Negative (NEGATIVE) Ur Oxycodone Screen Negative (NEGATIVE) Urine Methadone Screen Negative (NEGATIVE) Ur Barbiturates Screen Negative (NEGATIVE) U Tricyclic Antidepress Negative (NEGATIVE) Ur Phencyclidine Scrn Negative (NEGATIVE) Ur Amphetamine Screen Negative (NEGATIVE) U Methamphetamines Scrn Negative (NEGATIVE) Urine MDMA Screen Negative (NEGATIVE) U Benzodiazepines Scrn Negative (NEGATIVE) Urine Cocaine Screen Negative (NEGATIVE) U Marijuana (THC) Screen Negative (NEGATIVE) SARS-CoV-2 RNA (LEO) Negative (NEGATIVE) Med Orders - Current: Current Medications Acetaminophen (Acetaminophen 325 Mg Tab) 650 mg PO Q4H PRN PRN Reason: Pain (Mild 1-3) and fever Carboprost Tromethamine (Carboprost Tromethamine 250 Mcg/1 Ml Amp) 250 mcg IM ASDIRECTED PRN PRN Reason: HEMORRHAGE Tranexamic Acid 1,000 mg/ (Sodium Chloride) 110 mls @ 660 mls/hr IV ONETIME PRN PRN Reason: Bleeding Oxytocin/Sodium Chloride (Pitocin In Ns 30 Unit/500 Ml) 30 unit in 500 mls @ 2 mls/hr IV TITRATE SHERMAN; Protocol Penicillin G Potassium 3 (millunits/ Sodium Chloride) 100 mls @ 200 mls/hr IV Q4HR SHERMAN Last Admin: 07/30/20 03:08 Dose: Not Given Documented by: Lactated Ringer's (Ringers, Lactated) 1,000 mls @ 125 mls/hr IV ASDIRECTED SHERMAN Last Admin: 07/30/20 01:30 Dose: 125 mls/hr Documented by: Lidocaine HCl (Lidocaine 1% 30 Ml Sdv) 30 ml INJECT ASDIRECTED PRN PRN Reason: Perineal Repair Methylergonovine Maleate (Methylergonovine 0.2 Mg/1 Ml Amp) 0.2 mg IM ASDIRECTED PRN PRN Reason: Hemorrhage Misoprostol (Misoprostol 400 Mcg (4 X 100 Mcg Tab)) 800 mcg RECTAL ASDIRECTED PRN PRN Reason: Hemorrhage Ondansetron HCl (Ondansetron 4 Mg/2 Ml Sdv) 4 mg IVPUSH Q4H PRN PRN Reason: Nausea/Vomiting Sodium Chloride (Sodium Chloride 0.9% 10 Ml Syringe) 10 ml FLUSH ASDIRECTED PRN PRN Reason: Keep Vein Open Discontinued Medications Penicillin G Potassium 5 (millunits/ Sodium Chloride) 100 mls @ 200 mls/hr IV ONETIME ONE Stop: 07/30/20 01:32 Last Admin: 07/30/20 01:10 Dose: 200 mls/hr Documented by: Lactated Ringer's (Ringers, Lactated) 1,000 mls @ 999 mls/hr IV BOLUS ONE Stop: 07/30/20 02:03 Penicillin G Potassium (Penicillin G Potassium 5,000,000 Unit Vial) Confirm Administered Dose 5 millunits .ROUTE .STK-MED ONE Stop: 07/30/20 01:11 Last Admin: 07/30/20 03:08 Dose: Not Given Documented by: - Problem List & Annotations (1) care in third trimester SNOMED Code(s): 312788271, 54250566, 03808368, 326998600, 700629254 Code(s): Z34.93 - ENCNTR FOR SUPRVSN OF NORMAL PREG, UNSP, THIRD TRIMESTER Status: Acute Current Visit: Yes (2) Limited care in third trimester SNOMED Code(s): 985239162, 180832855 Code(s): O09.33 - SUPRVSN OF PREG W INSUFFICIENT ANTENAT CARE, THIRD TRIMESTER Status: Acute Current Visit: Yes (3) Active labor at term SNOMED Code(s): 22993256 Code(s): OWZ5860 - Status: Acute Current Visit: Yes (4) Drug use affecting SNOMED Code(s): 12387851, 371565886 Code(s): O99.320 - DRUG USE COMPLICATING , UNSPECIFIED TRIMESTER Status: Acute Current Visit: Yes Annotation/Comment:: THC+ UDS (5) Anemia affecting in third trimester SNOMED Code(s): 31768300, 46210813 Code(s): O99.013 - ANEMIA COMPLICATING , THIRD TRIMESTER Status: Acute Current Visit: Yes (6) (normal spontaneous vaginal delivery) SNOMED Code(s): 04678491, 732550889 Code(s): O80 - ENCOUNTER FOR FULL-TERM UNCOMPLICATED DELIVERY Status: Acute Current Visit: Yes - Problem List Review Problem List Initiated/Reviewed/Updated: Yes - My Orders Last 24 Hours: My Active Orders 07/30/20 01:03 Pump Management, Intrathecal [RC] ASDIRECTED Acetaminophen [TylenoL] 650 mg PO Q4H PRN Carboprost Tromethamine [Hemabate DS] 250 mcg IM ASDIRECTED PRN Lidocaine 1% [Xylocaine-MPF 1%] 30 ml INJECT ASDIRECTED PRN Methylergonovine [Methergine] 0.2 mg IM ASDIRECTED PRN Ondansetron [Zofran] 4 mg IVPUSH Q4H PRN Sodium Chloride 0.9% [Saline Flush] 10 ml FLUSH ASDIRECTED PRN Tranexamic Acid [Cyklokapron] 1,000 mg Sodium Chloride 0.9% [Normal Saline] 100 ml IV ONETIME miSOPROStoL [Cytotec] 800 mcg RECTAL ASDIRECTED PRN Resuscitation Status Routine 07/30/20 01:04 Patient Status [ADT] Routine Communication Order [RC] ASDIRECTED Heart Tones [RC] PER UNIT ROUTINE Notify Provider Vital Signs OB [RC] ASDIRECTED Notify Provider [RC] PRN Up ad Rylee [RC] ASDIRECTED Vital Signs [RC] PER UNIT ROUTINE Saline Lock Insert [OM.PC] Routine 07/30/20 01:15 Lactated Ringers [Ringers, Lactated] 1,000 ml IV ASDIRECTED Oxytocin/Normal Saline [Pitocin in NS 30 UNIT/500 ML] 30 unit in 500 ml IV TITRATE 07/30/20 02:00 Penicillin G Potassium [Pfizerpen] 3 millunits Sodium Chloride 0.9% [Normal S sabas] 100 ml IV Q4HR - Assessment Assessment:: 19-year-old now s/p at 40w1d - Plan Plan:: 1. Initiate routine orders 2. Plans to bottlefeed 3. Start ferrous sulfate 325 mg daily for anemia 4. Anticipate discharge 07/31/2020 Dr. Sherry Villegas MD
[2020-07-30] MEDS ORDERED: Benzocaine/Menthol 20%-0.5% Spray 56 GM Canister TOP PRN (03:53)
[2020-07-30] MEDS ORDERED: Oxytocin 10 Units/1 ML SDV IM PRN (03:53)
[2020-07-30] MEDS ORDERED: Simethicone 80 MG Tab.Chew PO PRN (03:53)
[2020-07-30] MEDS ORDERED: Ferrous Sulfate 325 MG Tab PO SCH (08:00)
[2020-07-30] MEDS ORDERED: Benzocaine/Menthol 20%-0.5% Spray 78 GM Cannister TOP PRN (09:38)
[2020-07-30] MEDS: Docusate Sodium 100 MG Cap PO PRN (09:40)
[2020-07-30] MEDS: Ibuprofen 800 MG Tab PO PRN ×2 (09:41→20:30)
[2020-07-30] MEDS: Prenatal Multivitamin with Calcium/Folic Acid/Iron Tab PO SCH (09:42)
[2020-07-30] MEDS: Lactated Ringers 1,000 ML IV ONE ×2 (10:43→13:20)
[2020-07-30] MEDS ORDERED: Oxytocin/Normal Saline 30 UNIT/500 ML BAG IV ONE (11:58)
[2020-07-30] MEDS ORDERED: Methylergonovine 0.2 MG Tab PO PRN (14:00)
[2020-07-30] MEDS ORDERED: Lactated Ringers 1,000 ML IV SCH (14:45)
[2020-07-30] MEDS ORDERED: ceFAZolin 2 GM in Premix Bag 1 BAG IV ONE (14:45)
[2020-07-30] MEDS ORDERED: Midazolam 1 MG/ML 2 ML SDV IV ONE (15:15)
[2020-07-30] MEDS ORDERED: Lidocaine 2% 20 ML MDV ONE (15:15)
[2020-07-30] MEDS ORDERED: Lactated Ringers 1,000 ML IV ONE (15:15)
[2020-07-30] MEDS ORDERED: ePHEDrine 50 MG/ML SDV IV ONE ×3 (15:30→15:50)
[2020-07-30] MEDS ORDERED: fentaNYL 100 MCG/2 ML SDV IV ONE (15:30)
[2020-07-30] MEDS ORDERED: Succinylcholine 200 MG/10 ML MDV IV ONE (15:30)
[2020-07-30] MEDS ORDERED: Propofol 200 MG/20 ML SDV IV ONE (15:30)
[2020-07-30] MEDS ORDERED: Misoprostol 400 MCG (4 X 100 MCG TAB) RECTAL ONE (15:50)
[2020-07-30] MEDS ORDERED: Oxytocin/Normal Saline 30 UNIT/500 ML BAG ONE (16:06)
[2020-07-30] MEDS ORDERED: Misoprostol 400 MCG (4 X 100 MCG TAB) ONE (16:13)
[2020-07-30] MEDS ORDERED: Sodium Chloride 0.9% 100 ML ONE (16:20)
--- NOTE | 2020-07-30 16:56 | US ---
EXAMINATION: Pelvis Non OB Ltd SEX: Female AGE: 19 years CLINICAL HISTORY: 19-year-old gravid female with vaginal delivery (OR) and now bleeding (check for retained placenta). INTERPRETATION: Abnormal. (Note "limited" transabdominal ultrasound exam in OR) Multiple images confirm enlarged uterus with abnormal central intraluminal echogenicity most characteristic of retained products of conception (membranes?). This appearance also consistent with but less typical of blood clots. Note: "Provider manually removed retained vaginal materials".
[2020-07-30] MEDS ORDERED: Methylergonovine 0.2 MG Tab PO SCH (18:00)
[2020-07-30] MEDS: Ferrous Sulfate 325 MG Tab PO SCH (19:16)
--- NOTE | 2020-07-30 20:08 | OR ---
DATE: 07/30/2020 PREPROCEDURE DIAGNOSES: 1. Delayed hemorrhage. 2. Status post uncomplicated vaginal delivery in a 3, now para 2-0-1-2 patient. 3. Uterine atony. 4. Retained products of conception. 5. History of marijuana use. 6. Anemia of and acute blood loss. POSTPROCEDURE DIAGNOSES: 1. Delayed hemorrhage. 2. Status post uncomplicated vaginal delivery in a 3, now para 2-0-1-2 patient. 3. Uterine atony. 4. Retained products of conception. 5. History of marijuana use. 6. Anemia of and acute blood loss. 7. Verified retained trailing membranes causing hemorrhage. 8. Superficial blood vessel bleeding on the cervix in the 8 o'clock position, requiring suture ligation. BRIEF HISTORY: A 19-year-old 3, now para 2-0-1-2, had a spontaneous vaginal delivery at 3:30 this morning. It was reported to be uncomplicated. Average estimated blood loss was nothing out of the ordinary. She was managed with the typical IV Pitocin. No additional medications or therapies were needed to control her bleeding, and then, today, at around 1300 hours, the patient had gotten up to go to the bathroom and felt something come out of the vagina, and it was found to be an approximate 1000 mL sized blood clot, and she was given a dose of Methergine and provided with fundal massage. At 1340 hours, she lost approximately another 400 mL and was given TXA and IV Pitocin running at 500 mL/h, expressed another clot of approximately 200 mL, and then, at 1441 hours, I performed a speculum exam and did not see any obvious intravaginal or cervical trauma that would account for the bleeding. The uterus was enlarged, and at least, an additional 150 mL of clot was expressed. The patient did not have anything additional for pain, but bedside ultrasound showed retained blood clot and possibly retained products of conception. Therefore, Dr. Villegas and I visited about taking her to the operating room for uterine curettage rather than attempting manual uterine exploration in the delivery room. CONSENT: Discussed with the patient, the fact that she was having significant hemorrhage that was going to require blood transfusion most likely, and recommended to go to the operating room for sharp curettage. Discussed with her potential for cervical scarring, decreasing chances of successful in the future, causing more of an Asherman syndrome. Discussed potential for uterine perforation, which could then lead to injury of other intraabdominal structures such as the intestines or bladder or even the fallopian tubes and ovaries, potential for infection and plan for preoperative antibiotics, potential for ongoing bleeding that would require placement of an intrauterine balloon and transfer to a higher level of care, and the likelihood of blood transfusion as well as its inherent risks such as vahid bloodborne disease or illness or having transfusion reaction. Appropriate consent forms were signed and are in the chart. All of the patient's questions were answered before proceeding to the operating room. DETAILS: The patient was brought to the operating room, and general anesthesia with endotracheal intubation was performed. She was then placed in dorsal lithotomy position and the vagina prepped. Straight cath was placed, and there was return of 600 of clear yellow urine. The vagina was then reinspected and again verified that there was no intravaginal trauma. Ultrasound was present to help guide the exam. Upon manual exploration, a small amount of clot was removed. A weighted speculum, a right angle retractor, and a ring forceps were then used to obtain adequate visualization of the cervix and hold the cervix and uterus in place while a large sharp curette was used to curette the uterus until the uterine cri was felt in all 4 quadrants. Followup ultrasound showed that there were still some retained products in a couple of the quadrants. Then, the curette was passed again with the specific ultrasound guidance to remove several fragments of retained membranes. No placental fragments were found. The trailing membranes, the largest segment was approximately 4 x 1 cm, and then, there were several other small shredded pieces of membrane returned after the bleeding had slowed. There was a superficial cervical blood vessel with continuous blood flow at about the 8 o'clock position. I attempted to cauterize it with electrocautery, and that was not successful. I then tried placing a ring forceps for simple crimping of the vessel to see if that would control the bleeding, and it did not; therefore, a 3-0 Vicryl suture was used to place a [id number] as well as a couple of additional sutures in order to obtain hemostasis of that blood vessel. The uterus was again ultrasounded and clot had re-organized and collected, that was removed, and the tech actually found another area of trailing membranes, which was then curetted out as well. Uterine cri was felt in all of the quadrants, and ultrasound looked clear at that time. The uterus was very boggy; therefore, bimanual massage was performed while we also initiated Pitocin running at 999 and placed 800 mcg of Cytotec rectally, and with continued massage, the bleeding was controlled at that point but felt anesthesia was also contributing to the uterine atony, so the patient was allowed to be woken up while the bleeding stayed controlled, and we continued with uterine massage as necessary. COMPLICATIONS: None. ESTIMATED BLOOD LOSS: Additional 1000 mL in the operating room, estimated 1750 to 2000 mL preoperatively. FLUIDS: IV crystalloids, IV with Pitocin, and the first unit of blood initiated in the operating room. DRAINS: None. DISPOSITION: After the patient recovers in the PACU, she will return to the Labor and Delivery Unit. We will be watching her uterus for recurrent atony very closely. She will also receive oral doses of Methergine for the next 24 hours. She will receive 2 units of packed red blood cells to start and additional units as indicated. We will do a hemoglobin about 6 hours after the second unit is completed and likely place a Chris indwelling catheter as well so that we can keep pressure from the bladder off the uterus so that it does not allow the uterus to elevate and relax. [facility] TAHLEQUAHFloyd /[id number] MTDElvis
[2020-07-30] MEDS: Benzocaine/Cetylpyridinium/Menthol Lozenge MUCMEM PRN (21:31)
[2020-07-30] MEDS: Acetaminophen/HYDROcodone 325-5 MG Tab PO PRN (21:40)
[2020-07-30] MEDS: Methylergonovine 0.2 MG Tab PO SCH (21:45)
[2020-07-31] MEDS: Ibuprofen 800 MG Tab PO PRN ×2 (04:30→17:13)
[2020-07-31] MEDS: Acetaminophen/HYDROcodone 325-5 MG Tab PO PRN ×3 (04:31→21:57)
[2020-07-31] MEDS: Benzocaine/Cetylpyridinium/Menthol Lozenge MUCMEM PRN (04:36)
[2020-07-31] MEDS: Methylergonovine 0.2 MG Tab PO SCH ×2 (06:05→15:01)
[2020-07-31] MEDS ORDERED: Sodium Chloride 0.9% 10 ML Syringe FLUSH PRN (08:53)
[2020-07-31] MEDS: Docusate Sodium 100 MG Cap PO PRN ×2 (08:57→21:58)
[2020-07-31] MEDS: Ferrous Sulfate 325 MG Tab PO SCH ×2 (08:57→17:53)
[2020-07-31] MEDS: Prenatal Multivitamin with Calcium/Folic Acid/Iron Tab PO SCH (09:00)
--- NOTE | 2020-07-31 09:01 | PCM.PNPP ---
<Lizbeth Pineda M - Last Filed: 07/31/20 08:56> - General Info Date of Service: 07/31/20 Admission Dx/Problem (Free Text): Patient Status Order with Admit Dx/Problem 07/30/20 01:04 Patient Status [ADT] Routine Admission Diagnosis/Problem Admission Diagnosis/Problem care in third trimester Subjective Update: A 19-year-old 3, now para 2-0-1-2, had a spontaneous vaginal delivery at 0330 yesterday morning. She was managed with the typical IV pitocin. Routine cares were started. At around 1300, she began to pass large clots with an EBL 3401-6315 mL. The bleeding persisted after appropriate doses of methergine, TXA, and IV pitocin running at 500 mL/hr. A bedside ultrasound revealed retained blood clots and possibly retained products of conception. She was subsequently taken for dilatation and curettage to the OR. The D&C expressed several blood clots and trailing membranes. There was also a superficial cervical bleed that was identified and sutured. EBL of the procedure equated to 1000 mL. 800 mcg cytotec was placed rectally and pitocin was ran at 999 mL/hr. After the procedure was completed and anesthesia wore off, the uterus was confirmed to be firm at level of umbilicus. At this time, she was tachycardic in the 140s and her SBPs in the 90s and DBPs in the 50s. Two units of pRBCs were transfused. Almeida indwelling catheter was placed at this time. Her pain is being managed with norco q4h and motrin. She reports her bleeding as minimal this morning. She slept well overnight. She is tolerating a general diet. She reports feeling much better compared to yesterday. She would like Almeida catheter removed today. Baby is exclusively formula feeding. No other concerns today. Functional Status: Reports: Pain Controlled, Tolerating Diet - Review of Systems HEENT: Reports: No Symptoms Pulmonary: Reports: No Symptoms Cardiovascular: Reports: No Symptoms Gastrointestinal: Reports: Abdominal Pain, [place] Neurological: Reports: No Symptoms - General Info Date of Service: 07/31/20 - Patient Data Vital Signs - Most Recent: Last Vital Signs Temp 98.4 F 07/31/20 04:00 Pulse 104 H 07/31/20 04:10 Resp 16 07/31/20 04:00 BP 105/63 07/31/20 04:10 Pulse Ox 99 07/31/20 04:00 Weight - Most Recent: 73.482 kg I&O - Last 24 Hours: Intake & Output 07/30/20 07/31/20 07/31/20 22:59 06:59 14:59 Intake Total 4140 120 Output Total 45 650 Balance 3722 -530 Lab Results - Last 24 Hours: Laboratory Results - last 24 hr 07/30/20 07/30/20 07/31/20 Range/Units 13:47 13:47 00:15 WBC 7.8 (5.0-10.0) 10^3/uL RBC 3.45 L (4.2-5.4) 10^6/uL Hgb 8.0 L D 7.9 L (12.0-16.0) g/dL Hct 25.4 L (37.0-47.0) % MCV 73.6 L (80-100) fL MCH 23.2 L (27.0-34.0) pg MCHC 31.5 L (33.0-35.0) g/dL Plt Count 301 (150-450) 10^3/uL Blood Type A POSITIVE Gel Antibody Screen Negative Crossmatch See Detail 07/31/20 Range/Units 06:10 WBC 8.4 (5.0-10.0) 10^3/uL RBC 3.11 L (4.2-5.4) 10^6/uL Hgb 7.8 L (12.0-16.0) g/dL Hct 24.1 L (37.0-47.0) % MCV 77.5 L D (80-100) fL MCH 25.1 L (27.0-34.0) pg MCHC 32.4 L (33.0-35.0) g/dL Plt Count 201 D (150-450) 10^3/uL Blood Type Gel Antibody Screen Crossmatch Med Orders - Current: Current Medications Acetaminophen (Acetaminophen 325 Mg Tab) 650 mg PO Q4H PRN PRN Reason: Pain (Mild 1-3) and fever Hydrocodone Bitart/Acetaminophen (Acetaminophen/Hydrocodone 325-5 Mg Tab) 1 tab PO Q4H PRN PRN Reason: Pain Last Admin: 07/31/20 04:31 Dose: 1 tab Documented by: Benzocaine/Menthol (Benzocaine/Menthol 20%-0.5% [place] 78 Gm Cannister) 0 gm TOP Q4H PRN PRN Reason: Perineal comfort measures Last Admin: 07/30/20 09:40 Dose: 1 spr Documented by: Benzocaine/Menthol (Benzocaine/Cetylpyridinium/Menthol Lozenge) 1 lozenge MUCMEM Q2H PRN PRN Reason: Other Last Admin: 07/31/20 04:36 Dose: 1 lozenge Documented by: Carboprost Tromethamine (Carboprost Tromethamine 250 Mcg/1 Ml Amp) 250 mcg IM ASDIRECTED PRN PRN Reason: HEMORRHAGE Docusate Sodium (Docusate Sodium 100 Mg Cap) 100 mg PO BID PRN PRN Reason: Constipation Last Admin: 07/30/20 09:40 Dose: 100 mg Documented by: Ferrous Sulfate (Ferrous Sulfate 325 Mg Tab) 325 mg PO BIDMEALS SHERMAN Last Admin: 07/30/20 19:16 Dose: Not Given Documented by: Tranexamic Acid 1,000 mg/ (Sodium Chloride) 110 mls @ 660 mls/hr IV ONETIME PRN PRN Reason: Bleeding Last Admin: 07/30/20 13:30 Dose: 660 mls/hr Documented by: Oxytocin/Sodium Chloride (Pitocin In Ns 30 Unit/500 Ml) 30 unit in 500 mls @ 2 mls/hr IV TITRATE [facility]; Protocol Last Titration: 07/30/20 15:15 Dose: 0 munits/min, 0 mls/hr Documented by: Lactated Ringer's (Ringers, Lactated) 1,000 mls @ 125 mls/hr IV ASDIRECTED [facility] Last Admin: 07/30/20 22:21 Dose: 125 mls/hr Documented by: Lactated Ringer's (Ringers, Lactated) 1,000 mls @ 500 mls/hr IV .BOLUS SHER[facility] Last Admin: 07/30/20 14:41 Dose: 500 mls/hr Documented by: Ibuprofen (Ibuprofen 800 Mg Tab) 800 mg PO Q8H PRN PRN Reason: Pain Last Admin: 07/31/20 04:30 Dose: 800 mg Documented by: Methylergonovine Maleate (Methylergonovine 0.2 Mg/1 Ml Amp) 0.2 mg IM ASDIRECTED PRN PRN Reason: Hemorrhage Last Admin: 07/30/20 13:30 Dose: 0.2 mg Documented by: Methylergonovine Maleate (Methylergonovine 0.2 Mg Tab) 0.2 mg PO Q8H [facility] Stop: 07/31/20 14:01 Last Admin: 07/31/20 06:05 Dose: 0.2 mg Documented by: Misoprostol (Misoprostol 400 Mcg (4 X 100 Mcg Tab)) 800 mcg RECTAL ASDIRECTED PRN PRN Reason: Hemorrhage Ondansetron HCl (Ondansetron 4 Mg/2 Ml Sdv) 4 mg IVPUSH Q4H PRN PRN Reason: Nausea/Vomiting Oxytocin (Oxytocin 10 Units/1 Ml Sdv) 10 unit IM ONETIME PRN PRN Reason: Bleeding Prenat Multivit/Public Safety Teacher/Iron/Folic Ac ( Multivitamin With Calcium/Folic Acid/Iron Tab) 1 each PO DAILY [facility] Last Admin: 07/30/20 09:42 Dose: 1 each Documented by: Simethicone (Simethicone 80 Mg Tab.Chew) 80 mg PO Q4H PRN PRN Reason: Gas Sodium Chloride (Sodium Chloride 0.9% 10 Ml Syringe) 10 ml FLUSH ASDIRECTED PRN PRN Reason: Keep Vein Open Sodium Chloride (Sodium Chloride 0.9% 10 Ml Syringe) 10 ml FLUSH ASDIRECTED PRN PRN Reason: Keep Vein Open Discontinued Medications Benzocaine/Menthol (Benzocaine/Menthol 20%-0.5% [place] 56 Gm Canister) 0 gm TOP Q4H PRN PRN Reason: Perineal comfort measures Ferrous Sulfate (Ferrous Sulfate 325 Mg Tab) 325 mg PO WITHBREAKFAST [facility] Last Admin: 07/30/20 09:40 Dose: 325 mg Documented by: Penicillin G Potassium 5 (millunits/ Sodium Chloride) 100 mls @ 200 mls/hr IV ONETIME ONE Stop: 07/30/20 01:32 Last Admin: 07/30/20 01:10 Dose: 200 mls/hr Documented by: Penicillin G Potassium 3 (millunits/ Sodium Chloride) 100 mls @ 200 mls/hr IV Q4HR [facility] Last Admin: 07/30/20 03:08 Dose: Not Given Documented by: Lactated Ringer's (Ringers, Lactated) 1,000 mls @ 999 mls/hr IV BOLUS ONE Stop: 07/30/20 02:03 Last Admin: 07/30/20 13:20 Dose: 999 mls/hr Documented by: Cefazolin Sodium/Dextrose 2 gm (/ Premix) 50 mls @ 100 mls/hr IV ONETIME ONE Stop: 07/30/20 15:14 Last Admin: 07/30/20 15:37 Dose: 100 mls/hr Documented by: Cefazolin Sodium/Dextrose (Ancef 2 Gm/50 Ml) Confirm Administered Dose 50 mls @ as directed .ROUTE .STK-MED ONE Stop: 07/30/20 15:36 Oxytocin/Sodium Chloride (Pitocin In Ns 30 Unit/500 Ml) Confirm Administered Dose 30 unit in 500 mls @ as directed .ROUTE .STK-MED ONE Stop: 07/30/20 16:07 Sodium Chloride (Normal Saline) Confirm Administered Dose 100 mls @ as directed .ROUTE .STK-MED ONE Stop: 07/30/20 16:21 Lidocaine HCl (Lidocaine 1% 30 Ml Sdv) 30 ml INJECT ASDIRECTED PRN PRN Reason: Perineal Repair Methylergonovine Maleate (Methylergonovine 0.2 Mg Tab) 0.2 mg PO Q8H PRN PRN Reason: Bleeding Methylergonovine Maleate (Methylergonovine 0.2 Mg Tab) 0.2 mg PO Q8H [facility] Stop: 07/31/20 10:01 Misoprostol (Misoprostol 400 Mcg (4 X 100 Mcg Tab)) Confirm Administered Dose 800 mcg .ROUTE .STK-MED ONE Stop: 07/30/20 16:14 Misoprostol (Misoprostol 400 Mcg (4 X 100 Mcg Tab)) 800 mcg RECTAL .STK-MED ONE Stop: 07/30/20 15:51 Last Admin: 07/30/20 15:50 Dose: 800 mcg Documented by: Penicillin G Potassium (Penicillin G Potassium 5,000,000 Unit Vial) Confirm Administered Dose 5 millunits .ROUTE .STK-MED ONE Stop: 07/30/20 01:11 Last Admin: 07/30/20 03:08 Dose: Not Given Documented by: - Interaction Infant Disposition, : [place] in Room with Family Interaction: Holding Feeding: Bottle Fed Infant Support Person: Significant Other - Recovery Exam Fundal Tone: Firm Fundal Level: At Umbilicus Fundal Placement: Midline Lochia Amount: Small Lochia Color: Rubra/Red Perineum Description: Intact, Minimal Bruising/Swelling, Edematous Episiotomy/Laceration: None Bladder Status: Nonpalpable Urinary Elimination: Indwelling Catheter - Exam General: Alert, Oriented, Lethargic HEENT: Pupils Equal, EOMI, Mucous Membr. Moist/[place] Lungs: Clear to Auscultation, Normal Respiratory Effort Cardiovascular: Regular Rate, Regular Rhythm GI/Abdominal Exam: Soft, Tender Extremities: Normal Inspection, No Pedal Edema, Normal Capillary Refill, Other (Mild swelling of the left upper extremity distal to peripheral IV) Skin: Warm, Dry Neurological: No New Focal Deficit Psy/Mental Status: Alert, Normal Affect, Normal Mood - Problem List & Annotations (1) hemorrhage SNOMED Code(s): 01500772 Code(s): O72.1 - OTHER IMMEDIATE HEMORRHAGE Status: Acute Current Visit: Yes (2) atony of uterus with hemorrhage SNOMED Code(s): 45624566, 64969144 Code(s): O72.1 - OTHER IMMEDIATE HEMORRHAGE Status: Acute Current Visit: Yes (3) Acute post-hemorrhagic anemia SNOMED Code(s): 631855182 Code(s): D62 - ACUTE POSTHEMORRHAGIC ANEMIA Status: Acute Current Visit: Yes (4) Transfusion of blood during current hospitalisation SNOMED Code(s): 794377727, 385264315 Code(s): DFB1573 - Status: Acute Current Visit: Yes (5) Drug use affecting SNOMED Code(s): 42890065, 371463444 Code(s): O99.320 - DRUG USE COMPLICATING , UNSPECIFIED TRIMESTER Status: Acute Current Visit: Yes Annotation/Comment:: THC+ UDS (6) Limited care in third trimester SNOMED Code(s): 314516178, 877750844 Code(s): O09.33 - SUPRVSN OF PREG W INSUFFICIENT ANTENAT CARE, THIRD TRIMESTER Status: Acute Current Visit: Yes (7) (normal spontaneous vaginal delivery) SNOMED Code(s): 93333315, 056494068 Code(s): O80 - ENCOUNTER FOR FULL-TERM UNCOMPLICATED DELIVERY Status: Acute Current Visit: Yes (8) care in third trimester SNOMED Code(s): 118978231, 02790921, 93251933, 556031861, 803357415 Code(s): Z34.93 - ENCNTR FOR SUPRVSN OF NORMAL PREG, UNSP, THIRD TRIMESTER Status: Acute Current Visit: Yes (9) Status post dilatation and curettage SNOMED Code(s): 651966565, 89704223, 802549998 Code(s): Z98.890 - OTHER SPECIFIED POSTPROCEDURAL STATES Status: Acute Current Visit: Yes - Problem List Review Problem List Initiated/Reviewed/Updated: Yes - My Orders Last 24 Hours: My Active Orders 07/30/20 17:47 Intake and Output Strict [RC] ,, Urinary Catheter Assessment [RC] ,07/30/20 17:49 Acetaminophen/HYDROcodone [[place] 325-5 MG] 1 tab PO Q4H PRN 07/30/20 18:00 [place]me[place] Catheter Insertion [Insert Urinary Catheter] [OM.PC] Q24H Ferrous Sulfate 325 mg PO BIDMEALS 07/30/20 22:00 Methylergonovine [Methergine] 0.2 mg PO Q8H 07/31/20 08:53 Sodium Chloride 0.9% [Saline Flush] 10 ml FLUSH ASDIRECTED PRN 07/31/20 09:00 Remove Alme[place] Catheter [Urinary Catheter Removal] [RC] PER UNIT ROUTINE Convert IV to Peripheral Lock [Convert IV to Saline Lock] [OM.PC] Routine 07/31/20 17:00 HEMOGLOBIN/HEMATOCRIT,HH [HEME] Routine - Plan Plan:: 19-year-old POD#1 s/p dilatation and curettage for hemorrhage following normal spontaneous vaginal delivery at 40w1d gestation. 1. Will order a repeat hbg/hct at 1700 today. If transfusion needed, 1 unit of pRBCs is on standby 2. May remove the almeida catheter today and encourage ambulation as tolerated 3. Saline lock peripheral IV. Two peripheral IVs in place on left upper extremity - may remove one of the peripheral IVs. 4. Continue to monitor for signs and symptoms of continued bleeding/hemorrhage 5. Continue general diet and tolerated 6. Continue using norco 5/325 q4h for pain 7. If hemoglobin remains stable and discharge goals are met, may consider discharge tomorrow 8. Will provide patient with incentive spirometer for px prevention of pneumonia BENEDICTO Flor <Sherry Villegas - Last Filed: 07/31/20 16:21> - Patient Data Vital Signs - Most Recent: Last Vital Signs Temp 37.1 C 07/31/20 08:00 Pulse 91 07/31/20 08:00 Resp 18 07/31/20 08:00 BP 110/58 L 07/31/20 08:00 Pulse Ox 99 07/31/20 08:00 I&O - Last 24 Hours: Intake & Output 07/31/20 07/31/20 07/31/20 06:59 14:59 22:59 Intake Total 1120 Output Total 650 300 Balance 470 -299* Lab Results - Last 24 Hours: Laboratory Results - last 24 hr 07/30/20 07/31/20 07/31/20 Range/Units 13:47 00:15 06:10 WBC 8.4 (5.0-10.0) 10^3/uL RBC 3.11 L (4.2-5.4) 10^6/uL Hgb 7.9 L 7.8 L (12.0-16.0) g/dL Hct 24.1 L (37.0-47.0) % MCV 77.5 L D (80-100) fL MCH 25.1 L (27.0-34.0) pg MCHC 32.4 L (33.0-35.0) g/dL Plt Count 201 D (150-450) 10^3/uL Blood Type A POSITIVE Gel Antibody Screen Negative Crossmatch See Detail Med Orders - Current: Current Medications Acetaminophen (Acetaminophen 325 Mg Tab) 650 mg PO Q4H PRN PRN Reason: Pain (Mild 1-3) and fever Hydrocodone Bitart/Acetaminophen (Acetaminophen/Hydrocodone 325-5 Mg Tab) 1 tab PO Q4H PRN PRN Reason: Pain (severe 7-10) Last Admin: 07/31/20 08:57 Dose: 1 tab Documented by: Benzocaine/Menthol (Benzocaine/Menthol 20%-0.5% [place] 78 Gm Cannister) 0 gm TOP Q4H PRN PRN Reason: Perineal comfort measures Last Admin: 07/30/20 09:40 Dose: 1 spr Documented by: Benzocaine/Menthol (Benzocaine/Cetylpyridinium/Menthol Lozenge) 1 lozenge MU CMEM Q2H PRN PRN Reason: Other Last Admin: 07/31/20 04:36 Dose: 1 lozenge Documented by: Carboprost Tromethamine (Carboprost Tromethamine 250 Mcg/1 Ml Amp) 250 mcg IM ASDIRECTED PRN PRN Reason: HEMORRHAGE Docusate Sodium (Docusate Sodium 100 Mg Cap) 100 mg PO BID PRN PRN Reason: Constipation Last Admin: 07/31/20 08:57 Dose: 100 mg Documented by: Ferrous Sulfate (Ferrous Sulfate 325 Mg Tab) 325 mg PO BIDMEALS SHERMAN Last Admin: 07/31/20 08:57 Dose: 325 mg Documented by: Tranexamic Acid 1,000 mg/ (Sodium Chloride) 110 mls @ 660 mls/hr IV ONETIME PRN PRN Reason: Bleeding Last Admin: 07/30/20 13:30 Dose: 660 mls/hr Documented by: Oxytocin/Sodium Chloride (Pitocin In Ns 30 Unit/500 Ml) 30 unit in 500 mls @ 2 mls/hr IV TITRATE [facility]; Protocol Last Titration: 07/30/20 15:15 Dose: 0 munits/min, 0 mls/hr Documented by: Lactated Ringer's (Ringers, Lactated) 1,000 mls @ 125 mls/hr IV ASDIRECTED [facility] Last Admin: 07/30/20 22:21 Dose: 125 mls/hr Documented by: Lactated Ringer's (Ringers, Lactated) 1,000 mls @ 500 mls/hr IV .BOLUS [facility] Last Admin: 07/30/20 14:41 Dose: 500 mls/hr Documented by: Ibuprofen (Ibuprofen 800 Mg Tab) 800 mg PO Q8H PRN PRN Reason: Pain (moderate 4-6) Last Admin: 07/31/20 04:30 Dose: 800 mg Documented by: Methylergonovine Maleate (Methylergonovine 0.2 Mg/1 Ml Amp) 0.2 mg IM ASDIRECTED PRN PRN Reason: Hemorrhage Last Admin: 07/30/20 13:30 Dose: 0.2 mg Documented by: Misoprostol (Misoprostol 400 Mcg (4 X 100 Mcg Tab)) 800 mcg RECTAL ASDIRECTED PRN PRN Reason: Hemorrhage Ondansetron HCl (Ondansetron 4 Mg/2 Ml Sdv) 4 mg IVPUSH Q4H PRN PRN Reason: Nausea/Vomiting Oxytocin (Oxytocin 10 Units/1 Ml Sdv) 10 unit IM ONETIME PRN PRN Reason: Bleeding Prenat Multivit/Public Safety Teacher/Iron/Folic Ac ( Multivitamin With Calcium/Folic Acid/Iron Tab) 1 each PO DAILY [facility] Last Admin: 07/31/20 09:00 Dose: 1 each Documented by: Simethicone (Simethicone 80 Mg Tab.Chew) 80 mg PO Q4H PRN PRN Reason: Gas Sodium Chloride (Sodium Chloride 0.9% 10 Ml Syringe) 10 ml FLUSH ASDIRECTED PRN PRN Reason: Keep Vein Open Discontinued Medications Benzocaine/Menthol (Benzocaine/Menthol 20%-0.5% [place] 56 Gm Canister) 0 gm TOP Q4H PRN PRN Reason: Perineal comfort measures Ephedrine Sulfate (Ephedrine 50 Mg/Ml Sdv) 10 mg IV .STK-MED ONE Stop: 07/30/20 15:31 Ephedrine Sulfate (Ephedrine 50 Mg/Ml Sdv) 5 mg IV .STK-MED ONE Stop: 07/30/20 15:46 Ephedrine Sulfate (Ephedrine 50 Mg/Ml Sdv) 10 mg IV .STK-MED ONE Stop: 07/30/20 15:51 Epinephrine HCl (Epinephrine 1 Mg/1 Ml Amp) 0.1 mg .XX .STK-MED ONE Stop: 07/30/20 01:06 Fentanyl (Fentanyl 100 Mcg/2 Ml Sdv) 30 mcg ITHECAL .STK-MED ONE Stop: 07/30/20 01:06 Fentanyl (Fentanyl 100 Mcg/2 Ml Sdv) 100 mcg IV .STK-MED ONE Stop: 07/30/20 15:31 Ferrous Sulfate (Ferrous Sulfate 325 Mg Tab) 325 mg PO WITHBREAKFAST [facility] Last Admin: 07/30/20 09:40 Dose: 325 mg Documented by: Hydroxyzine HCl (Hydroxyzine Hcl 25 Mg Tab) 50 mg PO ONETIME ONE Stop: 07/31/20 14:07 Last Admin: 07/31/20 14:10 Dose: 50 mg Documented by: Penicillin G Potassium 5 (millunits/ Sodium Chloride) 100 mls @ 200 mls/hr IV ONETIME ONE Stop: 07/30/20 01:32 Last Admin: 07/30/20 01:10 Dose: 200 mls/hr Documented by: Penicillin G Potassium 3 (millunits/ Sodium Chloride) 100 mls @ 200 mls/hr IV Q4HR [facility] Last Admin: 07/30/20 03:08 Dose: Not Given Documented by: Lactated Ringer's (Ringers, Lactated) 1,000 mls @ 999 mls/hr IV BOLUS ONE Stop: 07/30/20 02:03 Last Admin: 07/30/20 13:20 Dose: 999 mls/hr Documented by: Cefazolin Sodium/Dextrose 2 gm (/ Premix) 50 mls @ 100 mls/hr IV ONETIME ONE Stop: 07/30/20 15:14 Last Admin: 07/30/20 15:37 Dose: 100 mls/hr Documented by: Cefazolin Sodium/Dextrose (Ancef 2 Gm/50 Ml) Confirm Administered Dose 50 mls @ as directed .ROUTE .STK-MED ONE Stop: 07/30/20 15:36 Oxytocin/Sodium Chloride (Pitocin In Ns 30 Unit/500 Ml) Confirm Administered Dose 30 unit in 500 mls @ as directed .ROUTE .STK-MED ONE Stop: 07/30/20 16:07 Sodium Chloride (Normal Saline) Confirm Administered Dose 100 mls @ as directed .ROUTE .STK-MED ONE Stop: 07/30/20 16:21 Lactated Ringer's (Ringers, Lactated) 1,000 mls @ as directed IV .STK-MED ONE Stop: 07/30/20 15:16 Lidocaine HCl (Lidocaine 1% 30 Ml Sdv) 30 ml INJECT ASDIRECTED PRN PRN Reason: Perineal Repair Lidocaine HCl (Lidocaine 2% 20 Ml Mdv) 5 ml .XX .STK-MED ONE Stop: 07/30/20 15:16 Methylergonovine Maleate (Methylergonovine 0.2 Mg Tab) 0.2 mg PO Q8H PRN PRN Reason: Bleeding Methylergonovine Maleate (Methylergonovine 0.2 Mg Tab) 0.2 mg PO Q8H [facility] Stop: 07/31/20 10:01 Methylergonovine Maleate (Methylergonovine 0.2 Mg Tab) 0.2 mg PO Q8H [facility] Stop: 07/31/20 14:01 Last Admin: 07/31/20 15:01 Dose: Not Given Documented by: Midazolam HCl (Midazolam 1 Mg/Ml 2 Ml Sdv) 2 mg IV .STK-MED ONE Stop: 07/30/20 15:16 Misoprostol (Misoprostol 400 Mcg (4 X 100 Mcg Tab)) Confirm Administered Dose 800 mcg .ROUTE .STK-MED ONE Stop: 07/30/20 16:14 Misoprostol (Misoprostol 400 Mcg (4 X 100 Mcg Tab)) 800 mcg RECTAL .STK-MED ONE Stop: 07/30/20 15:51 Last Admin: 07/30/20 15:50 Dose: 800 mcg Documented by: Penicillin G Potassium (Penicillin G Potassium 5,000,000 Unit Vial) Confirm Administered Dose 5 millunits .ROUTE .STK-MED ONE Stop: 07/30/20 01:11 Last Admin: 07/30/20 03:08 Dose: Not Given Documented by: Propofol (Propofol 200 Mg/20 Ml Sdv) 200 mg IV .STK-MED ONE Stop: 07/30/20 15:31 Sodium Bicarbonate (Sodium Bicarbonate 4.2% 2.5 Meq/5 Ml Sdv) 0.5 meq .XX .STK- MED ONE Stop: 07/30/20 01:06 Sodium Chloride (Sodium Chloride 0.9% 20 Ml Sdv) 0.4 ml .XX .STK-MED ONE Stop: 07/30/20 01:06 Succinylcholine Chloride (Succinylcholine 200 Mg/10 Ml Mdv) 140 mg IV .STK-MED ONE Stop: 07/30/20 15:31 Sufentanil Citrate (Sufentanil 50 Mcg/1 Ml Amp) 20 mcg ITHECAL .STK-MED ONE Stop: 07/30/20 01:06 - Problem List & Annotations (1) care in third trimester SNOMED Code(s): 869252897, 69563650, 65850961, 582087053, 819103977 Code(s): Z34.93 - ENCNTR FOR SUPRVSN OF NORMAL PREG, UNSP, THIRD TRIMESTER Status: Acute Current Visit: Yes (2) Limited care in third trimester SNOMED Code(s): 439684268, 289943275 Code(s): O09.33 - SUPRVSN OF PREG W INSUFFICIENT ANTENAT CARE, THIRD TRIMESTER Status: Acute Current Visit: Yes (3) Active labor at term SNOMED Code(s): 37085776 Code(s): UEU2132 - Status: Acute Current Visit: Yes (4) Drug use affecting SNOMED Code(s): 33844993, 175114656 Code(s): O99.320 - DRUG USE COMPLICATING , UNSPECIFIED TRIMESTER Status: Acute Current Visit: Yes Annotation/Comment:: THC+ UDS - My Orders Last 24 Hours: My Active Orders 07/30/20 20:43 Benzocaine/Cetylpyrd/Menthol [Cepacol Sore Throat] 1 lozenge MUCMEM Q2H PRN 07/30/20 22:59 Communication Order [RC] PER UNIT ROUTINE - Plan Plan:: Patient was personally seen and examined with the medical student. I reviewed the noted scribed on my behalf and necessary changes have been made to reflect my opinion on the history, exam, assessment, and plan. Sherry Villegas MD
[2020-07-31] MEDS ORDERED: hydrOXYzine HCl 25 MG Tab PO ONE (14:06)
--- NOTE | 2020-07-31 16:47 | PCM.SN.2 ---
- Free Text/Narrative Note: 07/30/2020 2:20 PM I was called to L&D to assess patient's bleeding around 1340. Patient had been doing well throughout the morning. She had gotten out of bed twice without any issues. However, around 1330, she stood up and had about 1000 mL of dark blood and blood clots from the vagina land on the bed and floor. Nursing assessed her and noted persistent vaginal bleeding with some additional cloths with uterine massage. Patient was assessed and did have significantly more blood loss than would be expected at 10 hours . Patient was started on a 1L bolus of IV LR. Methergine protocol was given, and a dose of IV TXA was ordered. I also ordered a stat CBC and pelvic ultrasound to assess for retained products of conception. Patient seemed to be doing well so I returned to the clinic. About 15 minutes later, I was paged to return to L&D to assess further bleeding. Patient again had increased vaginal bleeding and had passed 3 clots. At this time, I consulted Dr. Mike for possible need for D&C. Dr. Mike performed a speculum exam which showed several large clots in the cervix, which were removed. No other source of bleeding noted on examination. Patient then underwent bedside ultrasound which showed a 1x3 cm lump of either tissue or clot in the fundus. As patient was still having heavy bleeding, the decision was made to proceed with D&C. Dr. Mike will assume care of the patient until D&C is complete and patient is out of recover. Dr. Sherry Villegas MD
[2020-08-01] MEDS: Ibuprofen 800 MG Tab PO PRN ×3 (01:22→23:34)
[2020-08-01] MEDS: Acetaminophen/HYDROcodone 325-5 MG Tab PO PRN ×4 (04:36→21:14)
--- NOTE | 2020-08-01 08:17 | PCM.PNPP ---
<Lizbeth Pineda M - Last Filed: 08/01/20 08:04> - General Info Date of Service: 08/01/20 Admission Dx/Problem (Free Text): Patient Status Order with Admit Dx/Problem 07/30/20 01:04 Patient Status [ADT] Routine Admission Diagnosis/Problem Admission Diagnosis/Problem care in third trimester Subjective Update: A 19-year-old 3, now para 2-0-1-2, POD#2 s/p dilatation and curettage fo r hemorrhage following a normal spontaneous vaginal delivery at 40w1d gestation. Past 24 hours: Patient noticed increased swelling of her eyelids, more prominent on the right side. She denied nausea, diarrhea, pruritus, chest pain, or shortness of breath. We continued to monitor overnight and the swelling improved. Chris catheter was removed yesterday. She has been voiding every 2 deyanira rs and reports minimal bleeding. She reports her pain as 7/10 and has been using Irving 325/5 and Motrin for pain management. She had a bowel movement yesterday. She has also been using an incentive spirometer and can reach approximately 1500 mL and then will cough. Hemoglobin was 6.6 this morning, so 1 unit of pRBC is currently being transfused. Baby is exclusively formula feeding. No other concerns today. Functional Status: Reports: Pain Controlled, Tolerating Diet, Ambulating, Incentive Spirometry Pain Score: 7 - Review of Systems General: Reports: No Symptoms Pulmonary: Reports: Cough Cardiovascular: Reports: No Symptoms Gastrointestinal: Reports: Abdominal Pain Neurological: Reports: No Symptoms - General Info Date of Service: 08/01/20 - Patient Data Vital Signs - Most Recent: Last Vital Signs Temp 97.3 F 08/01/20 07:41 Pulse 96 08/01/20 07:41 Resp 16 08/01/20 07:41 BP 104/54 L 08/01/20 07:41 Pulse Ox 96 07/31/20 20:00 Weight - Most Recent: 73.482 kg I&O - Last 24 Hours: Intake & Output 07/31/20 08/01/20 08/01/20 22:59 06:59 14:59 Intake Total 0 Balance 0 Lab Results - Last 24 Hours: Laboratory Results - last 24 hr 07/30/20 07/31/20 08/01/20 Range/Units 13:47 17:28 06:05 Hgb 8.1 L 6.6 L* D (12.0-16.0) g/dL Hct 24.6 L 20.4 L* (37.0-47.0) % Blood Type A POSITIVE Gel Antibody Screen Negative Crossmatch See Detail Med Orders - Current: Current Medications Acetaminophen (Acetaminophen 325 Mg Tab) 650 mg PO Q4H PRN PRN Reason: Pain (Mild 1-3) and fever Hydrocodone Bitart/Acetaminophen (Acetaminophen/Hydrocodone 325-5 Mg Tab) 1 tab PO Q4H PRN PRN Reason: Pain (severe 7-10) Last Admin: 08/01/20 04:36 Dose: 1 tab Documented by: Benzocaine/Menthol (Benzocaine/Menthol 20%-0.5% [place] 78 Gm Cannister) 0 gm TOP Q4H PRN PRN Reason: Perineal comfort measures Last Admin: 07/30/20 09:40 Dose: 1 spr Documented by: Benzocaine/Menthol (Benzocaine/Cetylpyridinium/Menthol Lozenge) 1 lozenge MUCMEM Q2H PRN PRN Reason: Other Last Admin: 07/31/20 04:36 Dose: 1 lozenge Documented by: Carboprost Tromethamine (Carboprost Tromethamine 250 Mcg/1 Ml Amp) 250 mcg IM ASDIRECTED PRN PRN Reason: HEMORRHAGE Docusate Sodium (Docusate Sodium 100 Mg Cap) 100 mg PO BID PRN PRN Reason: Constipation Last Admin: 07/31/20 21:58 Dose: 100 mg Documented by: Ferrous Sulfate (Ferrous Sulfate 325 Mg Tab) 325 mg PO BIDMEALS [facility]ERMAN Last Admin: 07/31/20 17:53 Dose: 325 mg Documented by: Tranexamic Acid 1,000 mg/ (Sodium Chloride) 110 mls @ 660 mls/hr IV ONETIME PRN PRN Reason: Bleeding Last Admin: 07/30/20 13:30 Dose: 660 mls/hr Documented by: Oxytocin/Sodium Chloride (Pitocin In Ns 30 Unit/500 Ml) 30 unit in 500 mls @ 2 mls/hr IV TITRATE [facility]; Protocol Last Titration: 07/30/20 15:15 Dose: 0 munits/min, 0 mls/hr Documented by: Lactated Ringer's (Ringers, Lactated) 1,000 mls @ 125 mls/hr IV ASDIRECTED [facility] Last Admin: 07/30/20 22:21 Dose: 125 mls/hr Documented by: Lactated Ringer's (Ringers, Lactated) 1,000 mls @ 500 mls/hr IV .BOLUS [facility] Last Admin: 07/30/20 14:41 Dose: 500 mls/hr Documented by: Ibuprofen (Ibuprofen 800 Mg Tab) 800 mg PO Q8H PRN PRN Reason: Pain (moderate 4-6) Last Admin: 08/01/20 01:22 Dose: 800 mg Documented by: Methylergonovine Maleate (Methylergonovine 0.2 Mg/1 Ml Amp) 0.2 mg IM ASDIRECTED PRN PRN Reason: Hemorrhage Last Admin: 07/30/20 13:30 Dose: 0.2 mg Documented by: Misoprostol (Misoprostol 400 Mcg (4 X 100 Mcg Tab)) 800 mcg RECTAL ASDIRECTED PRN PRN Reason: Hemorrhage Ondansetron HCl (Ondansetron 4 Mg/2 Ml Sdv) 4 mg IVPUSH Q4H PRN PRN Reason: Nausea/Vomiting Oxytocin (Oxytocin 10 Units/1 Ml Sdv) 10 unit IM ONETIME PRN PRN Reason: Bleeding Prenat Multivit/Youth Development Professional/Iron/Folic Ac ( Multivitamin With Calcium/Folic A dulce/Iron Tab) 1 each PO DAILY [facility] Last Admin: 07/31/20 09:00 Dose: 1 each Documented by: Simethicone (Simethicone 80 Mg Tab.Chew) 80 mg PO Q4H PRN PRN Reason: Gas Sodium Chloride (Sodium Chloride 0.9% 10 Ml Syringe) 10 ml FLUSH ASDIRECTED PRN PRN Reason: Keep Vein Open Discontinued Medications Benzocaine/Menthol (Benzocaine/Menthol 20%-0.5% [place] 56 Gm Canister) 0 gm TOP Q4H PRN PRN Reason: Perineal comfort measures Ephedrine Sulfate (Ephedrine 50 Mg/Ml Sdv) 10 mg IV .STK-MED ONE Stop: 07/30/20 15:31 Ephedrine Sulfate (Ephedrine 50 Mg/Ml Sdv) 5 mg IV .STK-MED ONE Stop: 07/30/20 15:46 Ephedrine Sulfate (Ephedrine 50 Mg/Ml Sdv) 10 mg IV .STK-MED ONE Stop: 07/30/20 15:51 Epinephrine HCl (Epinephrine 1 Mg/1 Ml Amp) 0.1 mg .XX .STK-MED ONE Stop: 07/30/20 01:06 Fentanyl (Fentanyl 100 Mcg/2 Ml Sdv) 30 mcg ITHECAL .STK-MED ONE Stop: 07/30/20 01:06 Fentanyl (Fentanyl 100 Mcg/2 Ml Sdv) 100 mcg IV .STK-MED ONE Stop: 07/30/20 15:31 Ferrous Sulfate (Ferrous Sulfate 325 Mg Tab) 325 mg PO WITH[facility]AKFAST [facility] Last Admin: 07/30/20 09:40 Dose: 325 mg Documented by: Hydroxyzine HCl (Hydroxyzine Hcl 25 Mg Tab) 50 mg PO ONETIME ONE Stop: 07/31/20 14:07 Last Admin: 07/31/20 14:10 Dose: 50 mg Documented by: Penicillin G Potassium 5 (millunits/ Sodium Chloride) 100 mls @ 200 mls/hr IV ONETIME ONE Stop: 07/30/20 01:32 Last Admin: 07/30/20 01:10 Dose: 200 mls/hr Documented by: Penicillin G Potassium 3 (millunits/ Sodium Chloride) 100 mls @ 200 mls/hr IV Q4HR [facility] Last Admin: 07/30/20 03:08 Dose: Not Given Documented by: Lactated Ringer's (Ringers, Lactated) 1,000 mls @ 999 mls/hr IV BOLUS ONE Stop: 07/30/20 02:03 Last Admin: 07/30/20 13:20 Dose: 999 mls/hr Documented by: Cefazolin Sodium/Dextrose 2 gm (/ Premix) 50 mls @ 100 mls/hr IV ONETIME ONE Stop: 07/30/20 15:14 Last Admin: 07/30/20 15:37 Dose: 100 mls/hr Documented by: Cefazolin Sodium/Dextrose (Ancef 2 Gm/50 Ml) Confirm Administered Dose 50 mls @ as directed .ROUTE .STK-MED ONE Stop: 07/30/20 15:36 Oxytocin/Sodium Chloride (Pitocin In Ns 30 Unit/500 Ml) Confirm Administered Dose 30 unit in 500 mls @ as directed .ROUTE .STK-MED ONE Stop: 07/30/20 16:07 Sodium Chloride (Normal Saline) Confirm Administered Dose 100 mls @ as directed .ROUTE .STK-MED ONE Stop: 07/30/20 16:21 Lactated Ringer's (Ringers, Lactated) 1,000 mls @ as directed IV .STK-MED ONE Stop: 07/30/20 15:16 Lidocaine HCl (Lidocaine 1% 30 Ml Sdv) 30 ml INJECT ASDIRECTED PRN PRN Reason: Perineal Repair Lidocaine HCl (Lidocaine 2% 20 Ml Mdv) 5 ml .XX .STK-MED ONE Stop: 07/30/20 15:16 Methylergonovine Maleate (Methylergonovine 0.2 Mg Tab) 0.2 mg PO Q8H PRN PRN Reason: Bleeding Methylergonovine Maleate (Methylergonovine 0.2 Mg Tab) 0.2 mg PO Q8H [facility] Stop: 07/31/20 10:01 Methylergonovine Maleate (Methylergonovine 0.2 Mg Tab) 0.2 mg PO Q8H [facility] Stop: 07/31/20 14:01 Last Admin: 07/31/20 15:01 Dose: Not Given Documented by: Midazolam HCl (Midazolam 1 Mg/Ml 2 Ml Sdv) 2 mg IV .STK-MED ONE Stop: 07/30/20 15:16 Misoprostol (Misoprostol 400 Mcg (4 X 100 Mcg Tab)) Confirm Administered Dose 800 mcg .ROUTE .STK-MED ONE Stop: 07/30/20 16:14 Misoprostol (Misoprostol 400 Mcg (4 X 100 Mcg Tab)) 800 mcg RECTAL .STK-MED ONE Stop: 07/30/20 15:51 Last Admin: 07/30/20 15:50 Dose: 800 mcg Documented by: Penicillin G Potassium (Penicillin G Potassium 5,000,000 Unit Vial) Confirm Administered Dose 5 millunits .ROUTE .STK-MED ONE Stop: 07/30/20 01:11 Last Admin: 07/30/20 03:08 Dose: Not Given Documented by: Propofol (Propofol 200 Mg/20 Ml Sdv) 200 mg IV .STK-MED ONE Stop: 07/30/20 15:31 Sodium Bicarbonate (Sodium Bicarbonate 4.2% 2.5 Meq/5 Ml Sdv) 0.5 meq .XX .STK- MED ONE Stop: 07/30/20 01:06 Sodium Chloride (Sodium Chloride 0.9% 20 Ml Sdv) 0.4 ml .XX .STK-MED ONE Stop: 07/30/20 01:06 Succinylcholine Chloride (Succinylcholine 200 Mg/10 Ml Mdv) 140 mg IV .STK-MED ONE Stop: 07/30/20 15:31 Sufentanil Citrate (Sufentanil 50 Mcg/1 Ml Amp) 20 mcg ITHECAL .STK-MED ONE Stop: 07/30/20 01:06 - Interaction Infant Disposition, : [place] in Room with Family Infant Interaction: Holding Infant Feeding: Bottle Fed Infant Support Person: Significant Other - Recovery Exam Fundal Tone: Firms with Massage (When massaging her uterus, she felt a gush of fluid. ) Fundal Level: At Umbilicus Fundal Placement: Midline Lochia Amount: Small Lochia Color: Rubra/Red Perineum Description: Intact, Minimal Bruising/Swelling Episiotomy/Laceration: None Bladder Status: Nonpalpable, Voiding Urinary Elimination: Indwelling Catheter - Exam General: Alert, Oriented HEENT: Pupils Equal, EOMI, Mucous Membr. Moist/Ten Sleep Lungs: Clear to Auscultation, Normal Respiratory Effort Cardiovascular: Regular Rate, Regular Rhythm GI/Abdominal Exam: Soft, No Distention Extremities: Normal Range of Motion, Non-Tender, No Pedal Edema Skin: Warm, Other (Pale ) Neurological: No New Focal Deficit Psy/Mental Status: Alert, Normal Affect, Normal Mood - Problem List & Annotations (1) hemorrhage SNOMED Code(s): 89720454 Code(s): O72.1 - OTHER IMMEDIATE HEMORRHAGE Status: Acute Current Visit: Yes (2) atony of uterus with hemorrhage SNOMED Code(s): 42133649, 66807666 Code(s): O72.1 - OTHER IMMEDIATE HEMORRHAGE Status: Acute Current Visit: Yes (3) Acute post-hemorrhagic anemia SNOMED Code(s): 241994088 Code(s): D62 - ACUTE POSTHEMORRHAGIC ANEMIA Status: Acute Current Visit: Yes (4) Transfusion of blood during current hospitalisation SNOMED Code(s): 023167865, 906987089 Code(s): WLV6513 - Status: Acute Current Visit: Yes (5) Drug use affecting SNOMED Code(s): 10150676, 474996367 Code(s): O99.320 - DRUG USE COMPLICATING , UNSPECIFIED TRIMESTER Status: Acute Current Visit: Yes Annotation/Comment:: THC+ UDS (6) Limited care in third trimester SNOMED Code(s): 731865395, 855492383 Code(s): O09.33 - SUPRVSN OF PREG W INSUFFICIENT ANTENAT CARE, THIRD TRIMESTER Status: Acute Current Visit: Yes (7) (normal spontaneous vaginal delivery) SNOMED Code(s): 28826275, 146033588 Code(s): O80 - ENCOUNTER FOR FULL-TERM UNCOMPLICATED DELIVERY Status: Acute Current Visit: Yes (8) care in third trimester SNOMED Code(s): 028463439, 30229873, 81686156, 705453773, 523184180 Code(s): Z34.93 - ENCNTR FOR SUPRVSN OF NORMAL PREG, UNSP, THIRD TRIMESTER Status: Acute Current Visit: Yes (9) Status post dilatation and curettage SNOMED Code(s): 404698490, 37911215, 109992018 Code(s): Z98.890 - OTHER SPECIFIED POSTPROCEDURAL STATES Status: Acute Current Visit: Yes - Problem List Review Problem List Initiated/Reviewed/Updated: Yes - My Orders Last 24 Hours: My Active Orders 07/31/20 08:53 Sodium Chloride 0.9% [Saline Flush] 10 ml FLUSH ASDIRECTED PRN 07/31/20 09:00 Convert IV to Peripheral Lock [Convert IV to Saline Lock] [OM.PC] Routine 07/31/20 09:47 Incentive Spirometry [RT Incentive Spirometry] [RC] ASDIRECTED 08/01/20 16:30 CBC W/O DIFF,HEMOGRAM [HEME] Timed - Assessment Assessment:: 19-year-old now POD#2 s/p dilatation and curettage for hemorrhage following normal spontaneous vaginal delivery at 40w1d gestation with acute blood loss anemia - Plan Plan:: 1. Will finish transfusing 1 unit pRBCs. Monitor for symptoms of transfusion reaction 2. Will order a CBC 6 hours following completion of transfusion (approximately 1730) 3. Continue to monitor for signs and symptoms of continued bleeding/hemorrhage 4. Will perform uterine massage periodically today to ensure uterus is firm (approximately every 2 hours) 5. Continue ferrous sulfate 325 mg BID for acute blood loss anemia 6. Continue general diet as tolerated 7. Continue using norco 5/325 q4h and motrin for pain 8. Continue using incentive spirometer periodically throughout the day with goal of 2000 mL 9. Continue remaining routine cares Lizbeth Pineda, MSIII <Sherry Villegas Nora - Last Filed: 08/01/20 14:04> - Patient Data Vital Signs - Most Recent: Last Vital Signs Temp 36.4 C 08/01/20 12:48 Pulse 93 08/01/20 12:48 Resp 12 08/01/20 12:48 BP 109/61 08/01/20 12:48 Pulse Ox 96 08/01/20 12:48 I&O - Last 24 Hours: Intake & Output 07/31/20 08/01/20 08/01/20 22:59 06:59 14:59 Intake Total 1470 Output Total 725 Balance 745 Lab Results - Last 24 Hours: Laboratory Results - last 24 hr 07/30/20 07/30/20 07/31/20 Range/Units 00:45 13:47 17:28 Hgb 8.1 L (12.0-16.0) g/dL Hct 24.6 L (37.0-47.0) % RPR Non-reac (Non-Reac) Blood Type A POSITIVE Gel Antibody Screen Negative Crossmatch See Detail 08/01/20 Range/Units 06:05 Hgb 6.6 L* D (12.0-16.0) g/dL Hct 20.4 L* (37.0-47.0) % RPR (Non-Reac) Blood Type Gel Antibody Screen Crossmatch Med Orders - Current: Current Medications Acetaminophen (Acetaminophen 325 Mg Tab) 650 mg PO Q4H PRN PRN Reason: Pain (Mild 1-3) and fever Hydrocodone Bitart/Acetaminophen (Acetaminophen/Hydrocodone 325-5 Mg Tab) 1 tab PO Q4H PRN PRN Reason: Pain (severe 7-10) Last Admin: 08/01/20 08:36 Dose: 1 tab Documented by: Benzocaine/Menthol (Benzocaine/Menthol 20%-0.5% [place] 78 Gm Cannister) 0 gm TOP Q4H PRN PRN Reason: Perineal comfort measures Last Admin: 07/30/20 09:40 Dose: 1 spr Documented by: Benzocaine/Menthol (Benzocaine/Cetylpyridinium/Menthol Lozenge) 1 lozenge MUCMEM Q2H PRN PRN Reason: Other Last Admin: 07/31/20 04:36 Dose: 1 lozenge Documented by: Carboprost Tromethamine (Carboprost Tromethamine 250 Mcg/1 Ml Amp) 250 mcg IM ASDIRECTED PRN PRN Reason: HEMORRHAGE Docusate Sodium (Docusate Sodium 100 Mg Cap) 100 mg PO BID PRN PRN Reason: Constipation Last Admin: 08/01/20 08:35 Dose: 100 mg Documented by: Ferrous Sulfate (Ferrous Sulfate 325 Mg Tab) 325 mg PO BIDMEALS [facility] Last Admin: 08/01/20 08:35 Dose: 325 mg Documented by: Tranexamic Acid 1,000 mg/ (Sodium Chloride) 110 mls @ 660 mls/hr IV ONETIME PRN PRN Reason: Bleeding Last Admin: 07/30/20 13:30 Dose: 660 mls/hr Documented by: Oxytocin/Sodium Chloride (Pitocin In Ns 30 Unit/500 Ml) 30 unit in 500 mls @ 2 mls/hr IV TITRATE [facility]; Protocol Last Titration: 07/30/20 15:15 Dose: 0 munits/min, 0 mls/hr Documented by: Lactated Ringer's (Ringers, Lactated) 1,000 mls @ 125 mls/hr IV ASDIRECTED [facility] Last Admin: 07/30/20 22:21 Dose: 125 mls/hr Documented by: Lactated Ringer's (Ringers, Lactated) 1,000 mls @ 500 mls/hr IV .BOLUS [facility] Last Admin: 07/30/20 14:41 Dose: 500 mls/hr Documented by: Ibuprofen (Ibuprofen 800 Mg Tab) 800 mg PO Q8H PRN PRN Reason: Pain (moderate 4-6) Last Admin: 08/01/20 12:46 Dose: 800 mg Documented by: Methylergonovine Maleate (Methylergonovine 0.2 Mg/1 Ml Amp) 0.2 mg IM ASDIRECTED PRN PRN Reason: Hemorrhage Last Admin: 07/30/20 13:30 Dose: 0.2 mg Documented by: Methylergonovine Maleate (Methylergonovine 0.2 Mg Tab) 0.2 mg PO Q8H [facility] Last Admin: 08/01/20 09:07 Dose: 0.2 mg Documented by: Misoprostol (Misoprostol 400 Mcg (4 X 100 Mcg Tab)) 800 mcg RECTAL ASDIRECTED PRN PRN Reason: Hemorrhage Ondansetron HCl (Ondansetron 4 Mg/2 Ml Sdv) 4 mg IVPUSH Q4H PRN PRN Reason: Nausea/Vomiting Oxytocin (Oxytocin 10 Units/1 Ml Sdv) 10 unit IM ONETIME PRN PRN Reason: Bleeding Prenat Multivit/Ovando/Iron/Folic Ac ( Multivitamin With Calcium/Folic Acid/Iron Tab) 1 each PO DAILY [facility] Last Admin: 08/01/20 08:35 Dose: 1 each Documented by: Simethicone (Simethicone 80 Mg Tab.Chew) 80 mg PO Q4H PRN PRN Reason: Gas Sodium Chloride (Sodium Chloride 0.9% 10 Ml Syringe) 10 ml FLUSH ASDIRECTED PRN PRN Reason: Keep Vein Open Discontinued Medications Benzocaine/Menthol (Benzocaine/Menthol 20%-0.5% [place] 56 Gm Canister) 0 gm TOP Q4H PRN PRN Reason: Perineal comfort measures Ephedrine Sulfate (Ephedrine 50 Mg/Ml Sdv) 10 mg IV .STK-MED ONE Stop: 07/30/20 15:31 Ephedrine Sulfate (Ephedrine 50 Mg/Ml Sdv) 5 mg IV .STK-MED ONE Stop: 07/30/20 15:46 Ephedrine Sulfate (Ephedrine 50 Mg/Ml Sdv) 10 mg IV .STK-MED ONE Stop: 07/30/20 15:51 Epinephrine HCl (Epinephrine 1 Mg/1 Ml Amp) 0.1 mg .XX .STK-MED ONE Stop: 07/30/20 01:06 Fentanyl (Fentanyl 100 Mcg/2 Ml Sdv) 30 mcg ITHECAL .STK-MED ONE Stop: 07/30/20 01:06 Fentanyl (Fentanyl 100 Mcg/2 Ml Sdv) 100 mcg IV .STK-MED ONE Stop: 07/30/20 15:31 Ferrous Sulfate (Ferrous Sulfate 325 Mg Tab) 325 mg PO [facility]ST [facility] Last Admin: 07/30/20 09:40 Dose: 325 mg Documented by: Hydroxyzine HCl (Hydroxyzine Hcl 25 Mg Tab) 50 mg PO ONETIME ONE Stop: 07/31/20 14:07 Last Admin: 07/31/20 14:10 Dose: 50 mg Documented by: Penicillin G Potassium 5 (millunits/ Sodium Chloride) 100 mls @ 200 mls/hr IV ONETIME ONE Stop: 07/30/20 01:32 Last Admin: 07/30/20 01:10 Dose: 200 mls/hr Documented by: Penicillin G Potassium 3 (millunits/ Sodium Chloride) 100 mls @ 200 mls/hr IV Q4HR [facility] Last Admin: 07/30/20 03:08 Dose: Not Given Documented by: Lactated Ringer's (Ringers, Lactated) 1,000 mls @ 999 mls/hr IV BOLUS ONE Stop: 07/30/20 02:03 Last Admin: 07/30/20 13:20 Dose: 999 mls/hr Documented by: Cefazolin Sodium/Dextrose 2 gm (/ Premix) 50 mls @ 100 mls/hr IV ONETIME ONE Stop: 07/30/20 15:14 Last Admin: 07/30/20 15:37 Dose: 100 mls/hr Documented by: Cefazolin Sodium/Dextrose (Ancef 2 Gm/50 Ml) Confirm Administered Dose 50 mls @ as directed .ROUTE .STK-MED ONE Stop: 07/30/20 15:36 Oxytocin/Sodium Chloride (Pitocin In Ns 30 Unit/500 Ml) Confirm Administered Dose 30 unit in 500 mls @ as directed .ROUTE .STK-MED ONE Stop: 07/30/20 16:07 Sodium Chloride (Normal Saline) Confirm Administered Dose 100 mls @ as directed .ROUTE .STK-MED ONE Stop: 07/30/20 16:21 Lactated Ringer's (Ringers, Lactated) 1,000 mls @ as directed IV .STK-MED ONE Stop: 07/30/20 15:16 Lidocaine HCl (Lidocaine 1% 30 Ml Sdv) 30 ml INJECT ASDIRECTED PRN PRN Reason: Perineal Repair Lidocaine HCl (Lidocaine 2% 20 Ml Mdv) 5 ml .XX .STK-MED ONE Stop: 07/30/20 15:16 Methylergonovine Maleate (Methylergonovine 0.2 Mg Tab) 0.2 mg PO Q8H PRN PRN Reason: Bleeding Methylergonovine Maleate (Methylergonovine 0.2 Mg Tab) 0.2 mg PO Q8H [facility] Stop: 07/31/20 10:01 Methylergonovine Maleate (Methylergonovine 0.2 Mg Tab) 0.2 mg PO Q8H [facility] Stop: 07/31/20 14:01 Last Admin: 07/31/20 15:01 Dose: Not Given Documented by: Midazolam HCl (Midazolam 1 Mg/Ml 2 Ml Sdv) 2 mg IV .STK-MED ONE Stop: 07/30/20 15:16 Misoprostol (Misoprostol 400 Mcg (4 X 100 Mcg Tab)) Confirm Administered Dose 800 mcg .ROUTE .STK-MED ONE Stop: 07/30/20 16:14 Misoprostol (Misoprostol 400 Mcg (4 X 100 Mcg Tab)) 800 mcg RECTAL .STK-MED ONE Stop: 07/30/20 15:51 Last Admin: 07/30/20 15:50 Dose: 800 mcg Documented by: Penicillin G Potassium (Penicillin G Potassium 5,000,000 Unit Vial) Confirm Administered Dose 5 millunits .ROUTE .STK-MED ONE Stop: 07/30/20 01:11 Last Admin: 07/30/20 03:08 Dose: Not Given Documented by: Propofol (Propofol 200 Mg/20 Ml Sdv) 200 mg IV .STK-MED ONE Stop: 07/30/20 15:31 Sodium Bicarbonate (Sodium Bicarbonate 4.2% 2.5 Meq/5 Ml Sdv) 0.5 meq .XX .STK- MED ONE Stop: 07/30/20 01:06 Sodium Chloride (Sodium Chloride 0.9% 20 Ml Sdv) 0.4 ml .XX .STK-MED ONE Stop: 07/30/20 01:06 Succinylcholine Chloride (Succinylcholine 200 Mg/10 Ml Mdv) 140 mg IV .STK-MED ONE Stop: 07/30/20 15:31 Sufentanil Citrate (Sufentanil 50 Mcg/1 Ml Amp) 20 mcg ITHECAL .STK-MED ONE Stop: 07/30/20 01:06 - Problem List & Annotations (1) care in third trimester SNOMED Code(s): 969098342, 33698640, 21686725, 702039163, 796533158 Code(s): Z34.93 - ENCNTR FOR SUPRVSN OF NORMAL PREG, UNSP, THIRD TRIMESTER Status: Acute Current Visit: Yes (2) Limited care in third trimester SNOMED Code(s): 841374425, 282751904 Code(s): O09.33 - SUPRVSN OF PREG W INSUFFICIENT ANTENAT CARE, THIRD T RIMESTER Status: Acute Current Visit: Yes (3) Active labor at term SNOMED Code(s): 92962831 Code(s): GZQ8643 - Status: Acute Current Visit: Yes (4) Drug use affecting SNOMED Code(s): 54495422, 706444313 Code(s): O99.320 - DRUG USE COMPLICATING , UNSPECIFIED TRIMESTER Status: Acute Current Visit: Yes Annotation/Comment:: THC+ UDS (5) Anemia affecting in third trimester SNOMED Code(s): 35970420, 82799036 Code(s): O99.013 - ANEMIA COMPLICATING , THIRD TRIMESTER Status: Acute Current Visit: Yes (6) (normal spontaneous vaginal delivery) SNOMED Code(s): 38006666, 855690983 Code(s): O80 - ENCOUNTER FOR FULL-TERM UNCOMPLICATED DELIVERY Status: Acute Current Visit: Yes - My Orders Last 24 Hours: My Active Orders 08/01/20 09:00 Methylergonovine [Methergine] 0.2 mg PO Q8H - Plan Plan:: Patient was personally seen and examined with the medical student. I reviewed the noted scribed on my behalf and necessary changes have been made to reflect my opinion on the history, exam, assessment, and plan. Will plan for discharge home tomorrow. Dr. Mike will assume care over the weekend. Patient is scheduled for nurse visit and repeat CBC on 08/05/20. Sherry Villegas MD
[2020-08-01] MEDS: Prenatal Multivitamin with Calcium/Folic Acid/Iron Tab PO SCH (08:35)
[2020-08-01] MEDS: Docusate Sodium 100 MG Cap PO PRN ×2 (08:35→21:14)
[2020-08-01] MEDS: Ferrous Sulfate 325 MG Tab PO SCH ×2 (08:35→17:38)
[2020-08-01] MEDS: Methylergonovine 0.2 MG Tab PO SCH ×2 (09:07→17:38)
[2020-08-02] MEDS: Methylergonovine 0.2 MG Tab PO SCH ×2 (01:28→08:16)
[2020-08-02] MEDS: Acetaminophen/HYDROcodone 325-5 MG Tab PO PRN ×3 (01:31→11:32)
--- NOTE | 2020-08-02 07:56 | DISCH ---
ADMITTING DIAGNOSES: 1. 40-1/7 weeks' gestation. 2. 3, para 1-0-1-1. 3. Group B Streptococcus positive, blood type A positive. 4. History of marijuana use. Negative urine drug screen on admission. 5. Late and limited care. DISCHARGE DIAGNOSES: 1. 40-1/7 weeks' gestation. 2. 3, para 2-0-1-2. 3. Group B Streptococcus positive, blood type A positive. 4. History of marijuana use. Negative urine drug screen on admission. 5. Late and limited care. 6. Status post spontaneous vaginal delivery plus delayed hemorrhage secondary to uterine atony and retained membranes. 7. Anemia of acute blood loss. PROCEDURES PERFORMED: 1. Spontaneous vaginal delivery with simple laceration repair. 2. Uterine curettage. 3. Blood transfusion of 3 units total. 4. Intrathecal for delivery and general anesthesia for the uterine curettage. BRIEF HISTORY: 19-year-old female presented to the hospital in active labor and had an uncomplicated labor and delivery course. At approximately 12 hours , she started passing large amounts of clots with heavy bleeding and estimated that she lost at least 2000 mL of blood prior to being taken to the operating room for uterine curettage at which time trailing amniotic fluid sac membranes were found and designated as a likely cause of her uterine atony and persistent hemorrhage. There were no placental fragments seen. Surgery was performed with ultrasound guidance for verification. There was also a small bleeding blood vessel on the surface of the cervix, which was controlled with placement of sutures. After the patient had her surgery performed, she had her initial 2 units of blood transfused and remained mildly symptomatic and Hgb was 6.6, and so a third unit was transfused. It was anticipated that she was going to be discharged home yesterday. However, she started to have some mild bogginess of the uterus and passage of some moderate size clots, so it was felt best to keep her on p.o. Methergine and observe her overnight to make sure things continue to go well before letting her go home. LABORATORY REVIEW: Shows initial admission hemoglobin of 10.1, platelets of 328 postdelivery, but preoperatively hemoglobin was 8. She was transfused 2 units and then hemoglobin came to 7.9, recheck 7.8 and 8.1. Then, on the , she decreased down to 6.6 at which time the 3rd unit of blood was ordered and she now has a discharge hemoglobin of 9.3 and platelets of 240. No other pertinent labs at this time. DISCHARGE CONDITION: Good. She is tolerating regular diet, ambulating. Denying lightheadedness, chest pain, shortness of breath. Complaining of lower abdominal and uterine pain and tenderness attributed to having so many episodes of uterine massage performed. No foul-smelling drainage or discharge. No fever or chills. Bleeding has been controlled at this point in time. She is bottle feeding her baby and looking forward to going home. PHYSICAL EXAMINATION: Vital Signs: Temperature is 98.4, pulse 90, blood pressure 116/60, respiratory rate of 18, O2 saturations 99% on room air. Heart: Regular rate and rhythm without murmur. Lungs: Clear to auscultation bilaterally. Abdomen: Soft. Tenderness below the umbilicus. Again, difficult to differentiate that this is uterine cramping and muscle pain from all of the massage or if the patient's pain tolerance is lower than anticipated. Extremities: Full range of motion. No edema, erythema, or tenderness noted. DISPOSITION: Home with family. MEDICATIONS: Tylenol 650 mg p.o. twice daily as needed for mild pain. Total Tylenol dose in 1 day combined with her other prescription should not exceed 4 g. Iron 325 mg twice daily, ibuprofen 800 mg 3 times a day as needed for pain, Colace 100 mg twice daily as needed for constipation, Bend 5/325 one tablet every 4 hours as needed for pain, dispensing 15 tablets, Methergine 0.2 mg p.o. every 8 hours for the next 4 days, dispensed 12. INSTRUCTIONS: Routine post vaginal delivery instructions were reviewed with her. Spent additional time discussing signs and symptoms of infection such as foul-smelling vaginal drainage or discharge, increased uterine tenderness and pain, fever, chills, and she should call Labor and Delivery if she has any concerns or problems. If she should present to the emergency department, she has been advised that they should call either myself or Dr. Villegas for consultation at least by telephone due to the complexity of her hemorrhage course. She verbalizes understanding and all of her questions were answered. [facility] /[id number] MAGGY
--- NOTE | 2020-08-02 08:13 | CONS ---
SERVICE DATE: 07/30/2020 REQUESTING PROVIDER: Sherry Villegas MD REASON FOR CONSULTATION: Delayed hemorrhage, evaluate for potential uterine curettage for concern of retained products of conception. BRIEF HISTORY: A 19-year-old 3, now para 2-0-1-2, status post uncomplicated spontaneous vaginal delivery. Approximately 12 hours after delivery, the patient was up to ambulate and passed a large blood clot estimated to be about 1000 mL in size. She was treated with a dose of Methergine at that time and uterine massage and bleeding seemed to improve. Approximately 45 minutes later, she passed another 400 mL of blood and was given a dose of TXA and IV Pitocin running at 500 which we initiated. Additional massage produced another 200 mL of bleeding and the patient seemed to be doing better at that time and uterus seemed more firm. Dr. Villegas was called into the room at approximately 1445, at which time, the patient had some persistent bleeding and we discussed her history and delivery course and agreed that we are going to need to proceed with uterine curettage for removal of retained products of conception. PAST MEDICAL HISTORY: Marijuana use, group B Strep positive, blood type A positive, late and insufficient care, otherwise unremarkable. PAST SURGICAL HISTORY: Available in her notes from Dr. Villegas and were not pertinent to treating her hemorrhage and not reviewed in detail at this time. FAMILY HISTORY: Available in her notes from Dr. Villegas and were not pertinent to treating her hemorrhage and not reviewed in detail at this time. SOCIAL HISTORY: Available in her notes from Dr. Villegas and were not pertinent to treating her hemorrhage and not reviewed in detail at this time. REVIEW OF SYSTEMS: The patient is having some lower abdominal pain, cramping, and muscle tenderness from the repeated uterine massages. Otherwise, she is also starting to feel some lightheadedness, chest discomfort, and a little bit of shortness of breath from the blood loss that she has suffered. Otherwise, does not offer up any additional complaints at this time. OBJECTIVE: VITAL SIGNS: T 98.2F, Pulse 89, BP 108/65, O2 sat 99%, Resp 18. GENITOURINARY: Limited focused exam was on the genitourinary system. Her uterus is mildly enlarged and slightly boggy. I was able to manually express an additional 150 to 200 mL of blood clot. Speculum exam confirmed that there is no additional vaginal or cervical trauma that would account for the bleeding. Ultrasound was called to the bedside and ultrasound performed showing retained products of conception as well as collection of clot in the uterus. CONSENT: Discussed with the patient the potential to try and perform a manual uterine exploration in the room with insufficient pain control, which would be quite traumatic for her and also less likely to be successful than going to the operating room with ultrasound-guided uterine curettage using appropriate instruments and being able to sedate her completely. Discussed the potential for blood transfusion with the amount of blood loss she has already had that would almost be a guarantee, and we also discussed its inherent risk of potentially vahid blood borne disease, illness, or having transfusion reaction, but also weighing that against the risk of severe anemia potentially even causing acute heart failure and end-organ damage. Discussed risk of injury to the bladder, potential for uterine perforation, and then injury to the intestine, fallopian tubes, ovaries, potential for scarring of the uterus making future pregnancies more difficult, and potential for vaginal and cervical thrombolytic procedure as well. After her questions were answered, appropriate consent forms were signed and those will be available in the chart. ASSESSMENT: 1. Delayed hemorrhage. 2. Severe blood loss, estimated to be over 2000 mL at this time. 3. Retained products of conception on ultrasound. 4. Other diagnoses as listed under the history. PLAN: Discussed with the patient and Dr. Villegas that I would like to take her to the operating room to removing the retained products of conception, and therefore anticipate that we will be able to stop the bleeding. Did discuss with her that while under anesthesia if there is discovery of another source of bleeding that would be addressed, however, there is also potential that I would not be able to control her bleeding and she would require transfer to a tertiary center. [facility] /[id number] MAGGY
[2020-08-02] MEDS: Docusate Sodium 100 MG Cap PO PRN (08:15)
[2020-08-02] MEDS: Ibuprofen 800 MG Tab PO PRN (08:16)
[2020-08-02] MEDS: Prenatal Multivitamin with Calcium/Folic Acid/Iron Tab PO SCH (08:17)
[2020-08-02] MEDS: Ferrous Sulfate 325 MG Tab PO SCH (08:17)
== END 2020-08-02 11:59 | disposition home or self-care (01) | DRG 797 ==
LOC: DL.OBCHECK 00:26 → DL.OB 01:02 → OBSVTOIN 01:02
PROVIDERS: ADMIT Family Medicine; ATTEND Family Medicine
PROC: 3E0R3BZ Introduction of Anesthetic Agent into Spinal Canal, Percutaneous Approach (ICD-10-PCS; principal; 2020-07-30)
PROC: 0HQ9XZZ Repair Perineum Skin, External Approach (ICD-10-PCS; principal; 2020-07-30)
PROC: 30233N1 Transfusion of Nonautologous Red Blood Cells into Peripheral Vein, Percutaneous Approach (ICD-10-PCS; principal; 2020-07-30)
PROC: 10D17ZZ Extraction of Products of Conception, Retained, Via Natural or Artificial Opening (ICD-10-PCS; principal; 2020-07-30)
PROC: 10E0XZZ Delivery of Products of Conception, External Approach (ICD-10-PCS; principal; 2020-07-30)
DX: O48.0 Post-term pregnancy (principal); D62 Acute posthemorrhagic anemia; Z37.0 Single live birth; O72.1 Other immediate postpartum hemorrhage; O99.324 Drug use complicating childbirth; O71.3 Obstetric laceration of cervix; O72.2 Delayed and secondary postpartum hemorrhage; O99.824 Streptococcus B carrier state complicating childbirth; Z3A.40 40 weeks gestation of pregnancy; F15.90 Other stimulant use, unspecified, uncomplicated; Z20.822 Contact with and (suspected) exposure to COVID-19
CPT/HCPCS: 00940; 01967; 36415; 36430; 51702; 59409; 76857; 80305-QW; 85014; 85018; 85027; 86592; 86850; 86900; 86901; 86920; 86922; A9270-GY; J0171; J0330; J0690; J2210; J2250; J2540; J2590; J2704; J3010; J7120; P9016; U0002

== ENCOUNTER 2021-06-09 07:13 | Emergency (ER) | payer MEDICAID ==
[2021-06-09 09:09] LABS: CORONAVIRUS COVID-19 NAA NEGATIVE (NEGATIVE); RESPIRATORY SYNCYTIAL VIR NAA NEGATIVE (NEGATIVE)
== END 2021-06-09 09:34 | disposition home or self-care (01) ==
LOC: DL.ED 07:13
DX: J02.8 Acute pharyngitis due to other specified organisms (principal); J06.9 Acute upper respiratory infection, unspecified; Z20.822 Contact with and (suspected) exposure to COVID-19
CPT/HCPCS: 0241U; 87081; 87430; 99282; 99283

== ENCOUNTER 2021-07-08 06:59 | Emergency (ER) | payer MEDICAID ==
[2021-07-08 08:13] LABS: ANION GAP 14.8 mEq/L (7-13); CHLORIDE,CL 101 mmol/L (98-107); SODIUM,NA 135 mmol/L (136-145)
== END 2021-07-08 08:55 | disposition home or self-care (01) ==
LOC: DL.ED 06:59
DX: O99.891 Other specified diseases and conditions complicating pregnancy (principal); R20.2 Paresthesia of skin; Z3A.00 Weeks of gestation of pregnancy not specified
CPT/HCPCS: 36415; 80053; 83735; 84702; 85025; 99284

== ENCOUNTER 2021-08-11 22:28 | Emergency (ER) | payer MEDICAID ==
[2021-08-11] MEDS ORDERED: Amoxicillin 500 MG Cap PO ONE (22:59)
[2021-08-11] MEDS ORDERED: Amoxicillin 500 MG Cap ONE (23:05)
== END 2021-08-11 23:22 | disposition home or self-care (01) ==
LOC: DL.ED 22:28
DX: H65.01 Acute serous otitis media, right ear (principal)
CPT/HCPCS: 99282; A9270-GY

== ENCOUNTER 2022-03-18 18:49 | Inpatient (IN) | payer MEDICAID ==
[2022-03-18] MEDS ORDERED: Sodium Chloride 0.9% 10 ML Syringe FLUSH PRN (20:49)
[2022-03-18] MEDS ORDERED: Misoprostol 400 MCG (4 X 100 MCG TAB) RECTAL PRN (20:49)
[2022-03-18] MEDS ORDERED: fentaNYL 100 MCG/2 ML SDV IVPUSH PRN (20:49)
[2022-03-18] MEDS ORDERED: Acetaminophen 325 MG Tab PO PRN ×2 (20:49→23:14)
[2022-03-18] MEDS ORDERED: Carboprost Tromethamine 250 MCG/1 ML Amp IM PRN (20:49)
[2022-03-18] MEDS ORDERED: Ondansetron 4 MG/2 ML SDV IVPUSH PRN (20:49)
[2022-03-18] MEDS ORDERED: Nalbuphine 20 MG/1 ML Amp IM PRN (20:49)
[2022-03-18] MEDS ORDERED: Lactated Ringers 1,000 ML IV ONE (20:49)
[2022-03-18] MEDS ORDERED: Methylergonovine 0.2 MG/1 ML Amp IM PRN (20:49)
[2022-03-18] MEDS ORDERED: Lidocaine 1% 10 ML MDV INJECT PRN (20:49)
[2022-03-18] MEDS ORDERED: Tranexamic Acid 1,000 MG in Sodium Chloride 0.9% 100 ML IV PRN (20:49)
[2022-03-18] MEDS ORDERED: Dexmedetomidine 200 MCG/2 ML SDV IT ONE (21:00)
[2022-03-18] MEDS ORDERED: Sodium Bicarbonate 4.2% 2.5 MEQ/5 ML SDV ONE ×2 (21:00→21:13)
[2022-03-18] MEDS ORDERED: EPINEPHrine 1 MG/ML SDV ONE ×2 (21:00→21:09)
[2022-03-18] MEDS ORDERED: Oxytocin/Normal Saline 30 UNIT/500 ML BAG IV SCH (21:00)
[2022-03-18] MEDS ORDERED: Lactated Ringers 1,000 ML IV SCH (21:00)
[2022-03-18] MEDS ORDERED: Morphine PF 10 MG/10 ML SDV IT ONE (21:00)
[2022-03-18] MEDS ORDERED: Ondansetron 4 MG/2 ML SDV IV ONE (21:00)
[2022-03-18] MEDS ORDERED: Sodium Chloride 0.9% 20 ML SDV ONE (21:00)
[2022-03-18] MEDS ORDERED: Dexmedetomidine 200 MCG/2 ML SDV ONE (21:09)
[2022-03-18] MEDS ORDERED: Oxytocin 10 Units/1 ML SDV IM PRN (23:14)
[2022-03-18] MEDS ORDERED: Benzocaine/Menthol 20%-0.5% Spray 78 GM Cannister TOP PRN (23:14)
[2022-03-18] MEDS ORDERED: Simethicone 80 MG Tab.Chew PO PRN (23:14)
[2022-03-18] MEDS: Ibuprofen 800 MG Tab PO PRN (23:45)
[2022-03-18] MEDS: Docusate Sodium 100 MG Cap PO PRN (23:45)
[2022-03-19] MEDS: Ibuprofen 800 MG Tab PO PRN ×2 (09:16→17:42)
[2022-03-19] MEDS: Prenatal Multivitamin with Calcium/Folic Acid/Iron Tab PO SCH (09:16)
[2022-03-19] MEDS: Docusate Sodium 100 MG Cap PO PRN (09:16)
[2022-03-20] MEDS: Docusate Sodium 100 MG Cap PO PRN ×2 (01:38→09:55)
[2022-03-20] MEDS: Ibuprofen 800 MG Tab PO PRN ×2 (01:38→09:50)
[2022-03-20] MEDS: Prenatal Multivitamin with Calcium/Folic Acid/Iron Tab PO SCH (09:52)
== END 2022-03-20 14:20 | disposition home or self-care (01) | DRG 807 ==
LOC: DL.OBCHECK 18:49 → DL.OB 19:49 → OBSVTOIN 23:12 → DL.OB 23:12
PROVIDERS: ADMIT Family Medicine; ATTEND Family Medicine
PROC: 10E0XZZ Delivery of Products of Conception, External Approach (ICD-10-PCS; principal; 2022-03-18)
PROC: 10907ZC Drainage of Amniotic Fluid, Therapeutic from Products of Conception, Via Natural or Artificial Opening (ICD-10-PCS; 2022-03-18)
PROC: 3E0R3BZ Introduction of Anesthetic Agent into Spinal Canal, Percutaneous Approach (ICD-10-PCS; 2022-03-18)
PROC: 00HU33Z Insertion of Infusion Device into Spinal Canal, Percutaneous Approach (ICD-10-PCS; 2022-03-18)
PROC: 3E02340 Introduction of Influenza Vaccine into Muscle, Percutaneous Approach (ICD-10-PCS; 2022-03-18)
DX: O48.0 Post-term pregnancy (principal); Z37.0 Single live birth; Z3A.40 40 weeks gestation of pregnancy; O99.02 Anemia complicating childbirth; D64.9 Anemia, unspecified; Z20.822 Contact with and (suspected) exposure to COVID-19; Z87.891 Personal history of nicotine dependence; Z23 Encounter for immunization
CPT/HCPCS: 36415; 51701; 59025; 59409; 85025; 85027; 86592; 90686; A9270-GY; G0008; J0171; J2270; J2405; J2590; J3490; J7120; U0002

== ENCOUNTER → 2023-01-02 01:12 | Emergency (ER) | payer SELFPAY ==
[~2023-01-02 01:12] MED LIST: Dexamethasone 4 MG/ML SDV IM ONE
== END | disposition home or self-care (01) ==
LOC: DL.ED 01:12
DX: R07.81 Pleurodynia (principal)
CPT/HCPCS: 96372; 99282; 99283; J1100